=== PATIENT | male | born 1935 | race Caucasian/White ===

== ENCOUNTER 2018-01-14 18:23 | Emergency (ER) | payer MEDICARE, OTHER ==
[~2018-01-14] VITALS: Ht 182.9 cm; Wt 86.7 kg
[~2018-01-14 18:23] MED LIST: ALPR-624 PO; COR3.125T PO; FLO0.4C PO; HYDR-3965 PO; LISI2.5T49 PO; NAPR220C15 PO; ZOC40T PO; [UNRECOGNIZED DRUG - CODE] PO
[2018-01-14 18:48] LABS: CLARITY,URINE CLOUDY (Clear); COLOR,URINE YELLOW (Yellow); GLUCOSE, URINE NEGATIVE (Neg); KETONES,URINE NEGATIVE (Neg); LEUKOCYTE ESTERASE ,URINE LARGE (Neg); NITRITES, URINE POSITIVE (Neg); OCCULT BLOOD,URINE SMALL (Neg); PROTEIN,URINE TRACE mg/dl (Neg); UROBILINOGEN,URINE 0.2 E.U/dL (0.2-1.0)
[2018-01-14 18:54] LABS: UA COLLECTION TYPE CLN CATCH MIDSTREAM
[2018-01-14 18:55] LABS: SQUAMOUS EPITHELIAL CELL,UR NONE SEEN /LPF (FEW)
[2018-01-14 18:56] LABS: BACTERIA,URINE 2+ /HPF (Neg); RBC,URINE 0-2 /HPF (0-2); WBC,URINE TNTC /HPF (0-4)
[2018-01-14] MEDS ORDERED: morphine 4 MG/ML inj SYRINge IV ONE (19:15)
[2018-01-14] MEDS ORDERED: normal saline 1000ML IV soln IVB ONE (19:15)
[2018-01-14] MEDS ORDERED: ondansetron/PF 4mg/2ml inj IV ONE (19:15)
[2018-01-14 19:17] LABS: BASOPHILS % (AUTO) 0.4 % (0-1); EOSINOPHILS # (AUTO) 0.1 X10'3 (0-0.9); EOSINOPHILS % (AUTO) 2.1 % (0-6); HEMOGLOBIN 13.8 g/dl (14.0-17.9); LYMPHOCYTES # (AUTO) 1.6 X10'3 (1.1-4.8); LYMPHOCYTES % (AUTO) 22.9 % (21-51); MEAN CORPUSCULAR HEMOGLOBIN 32.6 PG (27.0-31.0); MEAN CORPUSCULAR HGB CONC 35.2 % (33.0-36.5); MEAN CORPUSCULAR VOLUME 92.6 FL (78-98); MEAN PLATELET VOLUME 9.7 FL (7.4-10.4); MONOCYTES # (AUTO) 0.5 X10'3 (0-0.9); MONOCYTES % (AUTO) 6.6 % (2-12); NEUTROPHILS # (AUTO) 4.9 X10'3 (1.8-7.7); PLATELET COUNT 146 X10'3 (140-440); RED BLOOD COUNT 4.22 X10'6 (4.70-6.10); RED CELL DISTRIBUTION WIDTH 13.5 % (11.5-14.5); WHITE BLOOD COUNT 7.2 X10'3 (4.5-11.0)
[2018-01-14 19:26] LABS: PROTHROMBIN TIME 10.4 SECONDS (9.0-12.0)
[2018-01-14] MEDS ORDERED: morphine 4 MG/ML inj SYRINge IV STA (19:27)
[2018-01-14 19:35] VITALS: BP 10/45
[2018-01-14 19:36] LABS: ALANINE AMINOTRANSFERASE 476 U/L (12-78); ALBUMIN/GLOBULIN RATIO 1.3 (1.1-1.5); ALKALINE PHOSPHATASE 244 IU/L (46-116); ANION GAP 6 (8-16); ASPARTATE AMINO TRANSFERASE 433 U/L (10-37); BILIRUBIN,TOTAL 1.3 MG/DL (0.1-1.0); BLOOD UREA NITROGEN 26 MG/DL (7-18); BUN/CREATININE RATIO 14.9 (5.4-32.0); CALCIUM 9.2 MG/DL (8.5-10.1); CHLORIDE 105 MMOL/L (99-107); CREATININE 1.75 MG/DL (0.60-1.10); GLUCOSE 111 MG/DL (70-104); LIPASE 419 U/L (73-393); POTASSIUM 4.8 MMOL/L (3.5-5.1); SODIUM 138 MMOL/L (135-145); TOTAL CARBON DIOXIDE 27.2 MMOL/L (24-32); TOTAL PROTEIN 7.2 G/DL (6.4-8.2); eGFR 38 ML/MIN
[2018-01-14] MEDS ORDERED: CEPH-572 PO (20:49)
[2018-01-14] MEDS ORDERED: PER10325T PO (20:49)
== END 2018-01-14 21:09 | disposition home or self-care (01) ==
LOC: ER 18:23
DX: K80.20 Calculus of gallbladder without cholecystitis without obstruction (principal); N39.0 Urinary tract infection, site not specified; R74.8 Abnormal levels of other serum enzymes; I25.10 Atherosclerotic heart disease of native coronary artery without angina pectoris; I10 Essential (primary) hypertension; I25.2 Old myocardial infarction; J44.9 Chronic obstructive pulmonary disease, unspecified; Z98.61 Coronary angioplasty status; Z98.890 Other specified postprocedural states; Z95.0 Presence of cardiac pacemaker; Z88.2 Allergy status to sulfonamides; Z79.82 Long term (current) use of aspirin; Z79.899 Other long term (current) drug therapy
CPT/HCPCS: 36415; 76700; 80053; 81001; 83690; 85025; 85610; 87088; 96361; 96374; 96375; 99285; J2270; J2405; J7030

== ENCOUNTER 2018-01-16 08:10 | Outpatient (CLI) | payer MEDICARE, OTHER ==
[~2018-01-16 08:10] MED LIST changes: +CEPH-572 PO; +PER10325T PO
[2018-01-16 09:19] LABS: ALBUMIN 3.7 G/DL (3.4-5.0)
[2018-01-16 09:46] LABS: ALANINE AMINOTRANSFERASE 369 U/L (12-78); ALBUMIN/GLOBULIN RATIO 1.2 (1.1-1.5); ALKALINE PHOSPHATASE 209 IU/L (46-116); ASPARTATE AMINO TRANSFERASE 132 U/L (10-37); BILIRUBIN,DIRECT 0.3 MG/DL (0-0.3); BILIRUBIN,TOTAL 0.9 MG/DL (0.1-1.0); LIPASE 136 U/L (73-393); TOTAL PROTEIN 6.9 G/DL (6.4-8.2)
== END 2018-01-16 23:59 | disposition home or self-care (01) ==
LOC: LAB 08:10
PROVIDERS: ATTEND Family Medicine
DX: R10.9 Unspecified abdominal pain (principal); Z79.82 Long term (current) use of aspirin; Z87.891 Personal history of nicotine dependence
CPT/HCPCS: 36415; 80076; 83690

== ENCOUNTER 2018-01-29 08:23 | Day surgery (SDC) | payer MEDICARE, OTHER ==
[2018-01-28 15:19] LABS: BASOPHILS % (AUTO) 0.4 % (0-1); EOSINOPHILS # (AUTO) 0.1 X10'3 (0-0.9); LYMPHOCYTES # (AUTO) 1.6 X10'3 (1.1-4.8); LYMPHOCYTES % (AUTO) 24.3 % (21-51); MEAN CORPUSCULAR HEMOGLOBIN 32.5 PG (27.0-31.0); MEAN CORPUSCULAR HGB CONC 34.7 % (33.0-36.5); MEAN CORPUSCULAR VOLUME 93.7 FL (78-98); MEAN PLATELET VOLUME 9.7 FL (7.4-10.4); MONOCYTES # (AUTO) 0.5 X10'3 (0-0.9); MONOCYTES % (AUTO) 7.9 % (2-12); NEUTROPHILS # (AUTO) 4.4 X10'3 (1.8-7.7); NEUTROPHILS % (AUTO) 65.4 % (42-75); PRE OP HEMOGLOBIN 12.8 g/dL (14.0-17.9); PRE OP PLATELET COUNT 155 X10'3 (140-440); RED BLOOD COUNT 3.95 X10'6 (4.70-6.10); RED CELL DISTRIBUTION WIDTH 13.1 % (11.5-14.5)
[2018-01-28 15:37] LABS: ALBUMIN 3.6 G/DL (3.4-5.0); ALKALINE PHOSPHATASE 152 IU/L (46-116); BLOOD UREA NITROGEN 21 MG/DL (7-18); BUN/CREATININE RATIO 13.7 (5.4-32.0); CALCIUM 9.1 MG/DL (8.5-10.1); CHLORIDE 105 MMOL/L (99-107); CREATININE 1.53 MG/DL (0.60-1.10); PRE OP ALT 68 U/L (30-65); PRE OP ANION GAP 9 (8-16); PRE OP AST 27 U/L (10-37); PRE OP BILIRUB, TOTAL 0.3 MG/DL (0.0-1.0); PRE OP POTASSIUM 4.1 MMOL/L (3.4-5.1); PRE OP SODIUM 142 MMOL/L (135-145); TOTAL CARBON DIOXIDE 28.2 MMOL/L (24-32); TOTAL PROTEIN 7.1 G/DL (6.4-8.2); eGFR 44 ML/MIN
[2018-01-28 15:45] LABS: PRE OP GLUCOSE 122 MG/DL (70-104)
[2018-01-29] VITALS (7 sets, daily range): BP systolic 127–151; BP diastolic 54–103
[~2018-01-29] VITALS: Ht 401.3 cm; Wt 86.0 kg
[~2018-01-29 08:23] MED LIST changes: +BISO1TAB7 PO; -CEPH-572 PO; -COR3.125T PO; +DOCUMENT DATE & TIME OF BETA-BLOCKER PO ONE; +IPRA3AMP9 IH; -LISI2.5T49 PO; +LOSA25TA96 PO; -PER10325T PO; +albuterol 2.5 MG/3 ML nebule NEB ONE; +ceFOXitin 2 GM ADDvantage bag 100 ML IV ONE; +famotidine 20mg tablet PO ONE; +ringers solution, lacted 1,000 ML IV SCH
[2018-01-29] MEDS ORDERED: BISO10TA PO (09:45)
[2018-01-29] MEDS ORDERED: BUPIVAcaine/PF 2.5mg/ml (0.25%) 10ml vial ONE (11:48)
[2018-01-29] MEDS ORDERED: sevoflurane 250ml liquid IH ONE (12:28)
[2018-01-29] MEDS ORDERED: fentaNYL/PF 50MCG/1 ML 2ML syringe ONE ×2 (12:33→13:22)
[2018-01-29] MEDS ORDERED: propofol inj 20 ML IV ONE (12:45)
[2018-01-29] MEDS ORDERED: rocuronium 10mg/ml inj IV ONE (12:45)
[2018-01-29] MEDS ORDERED: LIDOcaine 2% (20mg/ml) 5ml vial ONE (12:45)
[2018-01-29] MEDS ORDERED: dexamethasone sod phosphate 4mg/ml inj. ONE (12:46)
[2018-01-29] MEDS ORDERED: neostigmine methylsulfate 1 MG/ML 10ml vial ONE (13:22)
[2018-01-29] MEDS ORDERED: glycopyrrolate 0.2mg/ml inj ONE (13:22)
[2018-01-29] MEDS ORDERED: ondansetron/PF 4mg/2ml inj ONE (13:22)
[2018-01-29] MEDS ORDERED: ringers solution, lacted 1,000 ML IV SCH (13:36)
[2018-01-29] MEDS ORDERED: ondansetron/PF 4mg/2ml inj IV PRN (13:40)
[2018-01-29] MEDS ORDERED: morphine 4 MG/ML inj SYRINge IV PRN (13:40)
[2018-01-29] MEDS ORDERED: HYDROmorphone 1 mg/ml syringe IV PRN ×2 (13:40)
[2018-01-29] MEDS ORDERED: HYDROmorphone inj. 0.5 MG/0.5 ML DISP.SYRIN IV PRN ×2 (13:45)
== END 2018-01-29 14:18 | disposition home or self-care (01) ==
LOC: PAS 08:23
PROVIDERS: ATTEND Surgery
DX: K80.12 Calculus of gallbladder with acute and chronic cholecystitis without obstruction (principal); L91.8 Other hypertrophic disorders of the skin; R20.8 Other disturbances of skin sensation; K85.10 Biliary acute pancreatitis without necrosis or infection; N40.0 Benign prostatic hyperplasia without lower urinary tract symptoms; I25.2 Old myocardial infarction; M19.90 Unspecified osteoarthritis, unspecified site; F41.8 Other specified anxiety disorders; I10 Essential (primary) hypertension; I42.8 Other cardiomyopathies; E78.5 Hyperlipidemia, unspecified; J44.9 Chronic obstructive pulmonary disease, unspecified; I25.10 Atherosclerotic heart disease of native coronary artery without angina pectoris; Z87.891 Personal history of nicotine dependence; Z90.49 Acquired absence of other specified parts of digestive tract; Z79.82 Long term (current) use of aspirin; Z88.2 Allergy status to sulfonamides; Z79.891 Long term (current) use of opiate analgesic; Z72.89 Other problems related to lifestyle; Z95.810 Presence of automatic (implantable) cardiac defibrillator; Z95.5 Presence of coronary angioplasty implant and graft; Z86.74 Personal history of sudden cardiac arrest; Z79.899 Other long term (current) drug therapy; Z98.890 Other specified postprocedural states; Z82.3 Family history of stroke
CPT/HCPCS: 11200; 36415; 47562; 71046; 80053; 85025; 93005; J0694; J1100; J2001; J2405; J2704; J2710; J3010; J3490; J7120; 88304; 88305; A7000

== ENCOUNTER 2018-01-29 18:23 | Emergency (ER) | payer MEDICARE, OTHER ==
[~2018-01-29] VITALS: Ht 182.9 cm; Wt 87.0 kg
[~2018-01-29 18:23] MED LIST changes: +BISO10TA PO; -DOCUMENT DATE & TIME OF BETA-BLOCKER PO ONE; -albuterol 2.5 MG/3 ML nebule NEB ONE; -ceFOXitin 2 GM ADDvantage bag 100 ML IV ONE; -famotidine 20mg tablet PO ONE; -ringers solution, lacted 1,000 ML IV SCH
[2018-01-29 20:22] VITALS: BP 154/98
== END 2018-01-29 21:33 | disposition home or self-care (01) ==
LOC: ER 18:24
DX: R33.9 Retention of urine, unspecified (principal); I25.10 Atherosclerotic heart disease of native coronary artery without angina pectoris; I10 Essential (primary) hypertension; I25.2 Old myocardial infarction; J44.1 Chronic obstructive pulmonary disease with (acute) exacerbation; Z98.890 Other specified postprocedural states; Z98.61 Coronary angioplasty status; Z95.0 Presence of cardiac pacemaker; Z88.2 Allergy status to sulfonamides; Z79.82 Long term (current) use of aspirin; Z79.899 Other long term (current) drug therapy
CPT/HCPCS: 51702; 99284; A4315

== ENCOUNTER 2019-02-17 14:53 | Observation (INO) | payer MEDICARE ==
[~2019-02-17] VITALS: Ht 182.9 cm; Wt 86.2 kg
[~2019-02-17 14:53] MED LIST changes: -BISO1TAB7 PO
[2019-02-17] MEDS ORDERED: aspirin 81mg tab.chew PO ONE (15:00)
--- NOTE | 2019-02-17 15:15 | NUR ---
CHEST PAIN AND PRESSURE STARTING AT 1350 TODAY, RATED 5/10. TOOK ASA AT HOME AND PAIN WAS GONE WHEN EMS ARRIVED AT THE SCENE. PAIN HAD BEEN GOING ON FOR APPROX 20-30 MINUTES PRIOR TO CALLING EMS. PAIN AT PRESENT IS 0/10. HX CT AND ARRHYTHMIAS WITH DEFIB/PACEMAKER. HX STENT.
[2019-02-17 15:22] LABS: BASOPHILS % (AUTO) 0.8 % (0-1); EOSINOPHILS # (AUTO) 0.2 X10'3 (0-0.9); EOSINOPHILS % (AUTO) 4.7 % (0-6); HEMATOCRIT 38.4 % (42.0-52.0); HEMOGLOBIN 13.3 g/dl (14.0-17.9); LYMPHOCYTES # (AUTO) 1.5 X10'3 (1.1-4.8); LYMPHOCYTES % (AUTO) 28.9 % (21-51); MEAN CORPUSCULAR HEMOGLOBIN 32.3 PG (27.0-31.0); MEAN CORPUSCULAR HGB CONC 34.8 g/dL (33.0-36.5); MEAN CORPUSCULAR VOLUME 92.8 FL (78-98); MEAN PLATELET VOLUME 9.5 FL (7.4-10.4); MONOCYTES # (AUTO) 0.4 X10'3 (0-0.9); MONOCYTES % (AUTO) 8.4 % (2-12); NEUTROPHILS # (AUTO) 2.9 X10'3 (1.8-7.7); NEUTROPHILS % (AUTO) 57.2 % (42-75); PLATELET COUNT 139 X10'3 (140-440); RED BLOOD COUNT 4.14 X10'6 (4.70-6.10); RED CELL DISTRIBUTION WIDTH 13.7 % (11.5-14.5); WHITE BLOOD COUNT 5.1 X10'3 (4.5-11.0)
[2019-02-17 15:36] LABS: ALANINE AMINOTRANSFERASE 48 U/L (12-78); ALBUMIN 3.5 G/DL (3.4-5.0); ALBUMIN/GLOBULIN RATIO 1.2 (1.1-1.5); ALKALINE PHOSPHATASE 92 IU/L (46-116); ANION GAP 8 (8-16); ASPARTATE AMINO TRANSFERASE 50 U/L (10-37); BILIRUBIN,TOTAL 0.5 MG/DL (0.1-1.0); BLOOD UREA NITROGEN 22 MG/DL (7-18); BUN/CREATININE RATIO 16.4 (5.4-32.0); CALCIUM 8.7 MG/DL (8.5-10.1); CHLORIDE 110 MMOL/L (99-107); CREATININE 1.34 MG/DL (0.60-1.10); GLUCOSE 103 MG/DL (70-104); POTASSIUM 4.4 MMOL/L (3.5-5.1); SODIUM 143 MMOL/L (135-145); TOTAL CARBON DIOXIDE 25.2 MMOL/L (24-32); TOTAL PROTEIN 6.5 G/DL (6.4-8.2); eGFR 51 ML/MIN
--- NOTE | 2019-02-17 15:45 | NUR ---
pt denies any cp vitals stable ,pt family at bedside.
[2019-02-17 16:25] LABS: LIPASE 153 U/L (73-393)
[2019-02-17] MEDS ORDERED: mag hydrox/Alum hydrox/simeth 30ml oral suspension PO PRN (16:25)
[2019-02-17] MEDS ORDERED: potassium Cl 20 mEq SR tablet PO PRN ×2 (16:25)
[2019-02-17] MEDS ORDERED: morphine 2 MG/ML inj. syringe IV PRN ×2 (16:25)
[2019-02-17] MEDS ORDERED: magnesium hydroxide 30ml (MOM) UD suspension PO PRN (16:25)
[2019-02-17] MEDS ORDERED: nitroGLYCERIN 0.4mg SUBLingual tab SL PRN ×2 (16:25→19:10)
[2019-02-17] MEDS ORDERED: ondansetron/PF 4mg/2ml inj IV PRN (16:25)
[2019-02-17] MEDS ORDERED: magnesium 4gm in 100ml NS 100 ML IV PRN (16:25)
[2019-02-17] MEDS ORDERED: acetaminophen 325mg tablet PO PRN ×2 (16:25)
[2019-02-17] MEDS ORDERED: magnesium 2GM in 50ml NS 50 ML IV PRN (16:25)
[2019-02-17] MEDS ORDERED: magnesium Cl slow-release 64mg tablet PO PRN (16:25)
[2019-02-17] MEDS ORDERED: potassium CL 10mEq/100ml bag 100 ML IV PRN ×2 (16:25)
[2019-02-17] MEDS ORDERED: APIX5TAB3 PO (17:32)
[2019-02-17] MEDS ORDERED: CYAN-51 PO (17:32)
[2019-02-17] MEDS ORDERED: MULT1TAB74 PO (17:32)
[2019-02-17] MEDS ORDERED: FERR325T32 PO (17:32)
[2019-02-17] MEDS ORDERED: ALPRAZolam 0.5mg tablet PO PRN (19:10)
[2019-02-17] MEDS ORDERED: ipratropium/albuterol 3ml nebule NEB PRN (19:10)
[2019-02-17] MEDS ORDERED: aminophylline 250mg/10ml inj. IV PRN (19:10)
[2019-02-17] MEDS ORDERED: HYDROcodone/acetaminophen 5mg/325mg tablet PO PRN (19:10)
[2019-02-17] MEDS ORDERED: normal saline 1000ml 1,000 ML IV ONE (19:10)
[2019-02-17] MEDS ORDERED: metoprolol tartrate 1mg/ml inj IV PRN (19:10)
--- NOTE | 2019-02-17 19:20 | NUR ---
I have received report from PERICO Salcido and had the opportunity to ask questions and assume patient care.
--- NOTE | 2019-02-17 19:30 | NUR ---
Patient arrived to room 313 via [facility]. Pt ambulated from [facility] to hospital bed. All known belongings with the pt.
[2019-02-17] MEDS ORDERED: enoxaparin 100mg/ml syringe SUBCUT SCH (20:00)
[2019-02-17 20:45] LABS: CLARITY,URINE CLEAR (Clear); COLOR,URINE YELLOW (Yellow); GLUCOSE, URINE NEGATIVE (Neg); KETONES,URINE NEGATIVE (Neg); LEUKOCYTE ESTERASE ,URINE TRACE (Neg); NITRITES, URINE NEGATIVE (Neg); OCCULT BLOOD,URINE LARGE (Neg); PROTEIN,URINE NEGATIVE (Neg); UROBILINOGEN,URINE 0.2 E.U/dL (0.2-1.0)
[2019-02-17 20:50] LABS: UA COLLECTION TYPE VOIDED
[2019-02-17 20:53] LABS: BACTERIA,URINE FEW /HPF (Neg); SQUAMOUS EPITHELIAL CELL,UR FEW /LPF (FEW); WBC,URINE 0-4 /HPF (0-4)
[2019-02-17] MEDS ORDERED: atorvastatin 10mg tablet PO SCH (21:00)
--- NOTE | 2019-02-17 21:00 | NUR ---
Patient refused Lipitor. Patient states he had a reaction to this medication many years ago but could not say what the reaction was. I advised him to communicate this with the DrDonita and I will pass on this information as well.
[2019-02-17] MEDS: ipratropium/albuterol 3ml nebule NEB SCH (21:53)
[2019-02-17 22:00] VITALS: BP 149/82
[2019-02-17] MEDS: enoxaparin 100mg/ml syringe SUBCUT SCH (22:07)
[2019-02-17] MEDS ORDERED: CefTRIAXone/D5W-Rocephin 1gm 50 ML IV ONE (23:10)
[2019-02-18] VITALS (13 sets, daily range): BP systolic 122–164; BP diastolic 55–82
[2019-02-18 03:43] LABS: BASOPHILS % (AUTO) 0.6 % (0-1); EOSINOPHILS # (AUTO) 0.2 X10'3 (0-0.9); EOSINOPHILS % (AUTO) 3.6 % (0-6); HEMATOCRIT 38.4 % (42.0-52.0); HEMOGLOBIN 13.5 g/dl (14.0-17.9); LYMPHOCYTES # (AUTO) 2.3 X10'3 (1.1-4.8); MEAN CORPUSCULAR HEMOGLOBIN 32.3 PG (27.0-31.0); MEAN CORPUSCULAR VOLUME 92.2 FL (78-98); MEAN PLATELET VOLUME 9.5 FL (7.4-10.4); MONOCYTES # (AUTO) 0.5 X10'3 (0-0.9); MONOCYTES % (AUTO) 7.6 % (2-12); NEUTROPHILS # (AUTO) 3.6 X10'3 (1.8-7.7); NEUTROPHILS % (AUTO) 53.2 % (42-75); PLATELET COUNT 141 X10'3 (140-440); RED BLOOD COUNT 4.17 X10'6 (4.70-6.10); RED CELL DISTRIBUTION WIDTH 13.7 % (11.5-14.5); WHITE BLOOD COUNT 6.7 X10'3 (4.5-11.0)
[2019-02-18 03:54] LABS: ALBUMIN 3.5 G/DL (3.4-5.0); ANION GAP 10 (8-16); BLOOD UREA NITROGEN 19 MG/DL (7-18); BUN/CREATININE RATIO 14.2 (5.4-32.0); CALCIUM 8.5 MG/DL (8.5-10.1); CHLORIDE 109 MMOL/L (99-107); CHOL/HDL RATIO 2.7 (0.00-4.99); CHOLESTEROL 158 MG/DL (0-200); CREATININE 1.34 MG/DL (0.60-1.10); GLUCOSE 100 MG/DL (70-104); HDL CHOLESTEROL 58 MG/DL (35-60); LDL CHOLESTEROL 81 MG/DL (50-100); POTASSIUM 3.9 MMOL/L (3.5-5.1); SODIUM 141 MMOL/L (135-145); TOTAL CARBON DIOXIDE 22.5 MMOL/L (24-32); TRIGLYCERIDES 165 MG/DL (20-135); eGFR 51 ML/MIN
--- NOTE | 2019-02-18 05:33 | NUR ---
Orienteer documentation: I have reviewed and agree with interventions, assessments performed and documented by PERICO Garcia. Orienteer Medication Administration: For this medication-pass time frame, medication were reviewed, dispensed, administered and documented per hospital policy by PERICO Garcia.
--- NOTE | 2019-02-18 06:37 | NUR ---
Problems reprioritized. Patient report given, questions answered & plan of care reviewed with PERICO Tejeda.
[2019-02-18] MEDS ORDERED: atenolol 50mg tablet PO SCH (08:00)
[2019-02-18] MEDS ORDERED: CefTRIAXone/D5W-Rocephin 1gm 50 ML IV SCH (08:00)
[2019-02-18] MEDS ORDERED: aspirin 81mg tablet.DR PO SCH (08:00)
[2019-02-18] MEDS ORDERED: enoxaparin 40mg/0.4ml syringe SQ SCH (08:00)
[2019-02-18] MEDS ORDERED: tamsulosin 0.4mg capsule PO SCH (08:00)
[2019-02-18] MEDS ORDERED: ferrous sulfate 325mg tablet PO SCH (08:00)
[2019-02-18] MEDS ORDERED: multivitamins, therapeutics tablet PO SCH (08:00)
[2019-02-18] MEDS ORDERED: K and/or MAG REPLACEMENT MC SCH (08:00)
[2019-02-18] MEDS ORDERED: cyanocobalamin 500mcg tablet PO SCH (08:00)
[2019-02-18] MEDS: enoxaparin 100mg/ml syringe SUBCUT SCH (08:21)
[2019-02-18] MEDS: ipratropium/albuterol 3ml nebule NEB SCH ×2 (08:33→15:02)
[2019-02-18] MEDS: regadenoson 0.4mg/5ml syringe IV PRN ×2 (12:52→13:04)
[2019-02-18] MEDS ORDERED: PANT40SU2 PO (15:05)
[2019-02-18] MEDS ORDERED: lactobacillus rhamnosus 10,000 MMU CELLS/CAPSULE PO SCH (20:00)
== END 2019-02-18 15:15 | disposition home or self-care (01) ==
LOC: ER 14:53 → MED 3N 19:24
PROVIDERS: ADMIT Hospitalist; ATTEND Hospitalist
DX: R07.89 Other chest pain (principal); E78.5 Hyperlipidemia, unspecified; I10 Essential (primary) hypertension; I25.10 Atherosclerotic heart disease of native coronary artery without angina pectoris; I25.2 Old myocardial infarction; J44.9 Chronic obstructive pulmonary disease, unspecified; K21.9 Gastro-esophageal reflux disease without esophagitis; M19.90 Unspecified osteoarthritis, unspecified site; N40.0 Benign prostatic hyperplasia without lower urinary tract symptoms; R31.29 Other microscopic hematuria; Z79.01 Long term (current) use of anticoagulants; Z87.891 Personal history of nicotine dependence; Z95.0 Presence of cardiac pacemaker; Z95.5 Presence of coronary angioplasty implant and graft; Z79.82 Long term (current) use of aspirin; Z79.899 Other long term (current) drug therapy
CPT/HCPCS: 36415; 71045; 78452; 80048; 80053; 80061; 81001; 83690; 83735; 83880; 84484; 85025; 87081; 87088; 93005; 93017; 93306; 94640; 94760; 96365; 96366; 96372; 99284; A9500; G0378; J0280; J0696; J2785; J1650

== ENCOUNTER 2019-05-07 21:57 | Inpatient (IN) | payer MEDICARE ==
[~2019-05-07] VITALS: Ht 177.8 cm; Wt 73.7 kg
[~2019-05-07 21:57] MED LIST changes: +APIX5TAB3 PO; +CYAN-51 PO; +FERR325T32 PO; +MULT1TAB74 PO; +PANT40SU2 PO; -[UNRECOGNIZED DRUG - CODE] PO
[2019-05-07 22:36] LABS: BASOPHILS % (AUTO) 0.4 % (0-1); EOSINOPHILS # (AUTO) 0.1 X10'3 (0-0.9); EOSINOPHILS % (AUTO) 0.9 % (0-6); HEMATOCRIT 37.5 % (42.0-52.0); HEMOGLOBIN 13.2 g/dl (14.0-17.9); LYMPHOCYTES # (AUTO) 1.2 X10'3 (1.1-4.8); LYMPHOCYTES % (AUTO) 16.9 % (21-51); MEAN CORPUSCULAR HEMOGLOBIN 33.3 PG (27.0-31.0); MEAN CORPUSCULAR HGB CONC 35.2 g/dL (33.0-36.5); MEAN CORPUSCULAR VOLUME 94.5 FL (78-98); MEAN PLATELET VOLUME 9.9 FL (7.4-10.4); MONOCYTES # (AUTO) 0.4 X10'3 (0-0.9); MONOCYTES % (AUTO) 5.1 % (2-12); NEUTROPHILS # (AUTO) 5.5 X10'3 (1.8-7.7); NEUTROPHILS % (AUTO) 76.7 % (42-75); PLATELET COUNT 141 X10'3 (140-440); RED BLOOD COUNT 3.97 X10'6 (4.70-6.10); RED CELL DISTRIBUTION WIDTH 13.9 % (11.5-14.5); WHITE BLOOD COUNT 7.1 X10'3 (4.5-11.0)
[2019-05-07 22:47] LABS: ALANINE AMINOTRANSFERASE 441 U/L (12-78); ALBUMIN 3.9 G/DL (3.4-5.0); ALBUMIN/GLOBULIN RATIO 1.2 (1.1-1.5); ALKALINE PHOSPHATASE 192 IU/L (46-116); ANION GAP 9 (8-16); ASPARTATE AMINO TRANSFERASE 501 U/L (10-37); BILIRUBIN,TOTAL 1.9 MG/DL (0.1-1.0); BLOOD UREA NITROGEN 21 MG/DL (7-18); BUN/CREATININE RATIO 14.9 (5.4-32.0); CALCIUM 9.6 MG/DL (8.5-10.1); CHLORIDE 105 MMOL/L (99-107); CREATININE 1.41 MG/DL (0.60-1.10); GLUCOSE 132 MG/DL (70-104); SODIUM 140 MMOL/L (135-145); TOTAL PROTEIN 7.2 G/DL (6.4-8.2); eGFR 48 ML/MIN
[2019-05-07 22:59] LABS: LIPASE 26962 U/L (73-393)
--- NOTE | 2019-05-07 23:01 | NUR ---
Pt refused IV access and IV zofran at this time. Pt reports "I would rather hydrate on my own and do not want an IV." Pt also reports he has a history of elevated temperature every time he receives an IV access.
[2019-05-07 23:20] LABS: TROPONIN I < 0.04 NG/ML (0.0-0.05)
--- NOTE | 2019-05-07 23:30 | NUR ---
Pt ambulatory with steady gait to the restroom to attempt to void and provide urine specimen.
[2019-05-07 23:48] LABS: CLARITY,URINE CLEAR (Clear); COLOR,URINE YELLOW (Yellow); GLUCOSE, URINE NEGATIVE (Neg); KETONES,URINE TRACE mg/dl (Neg); LEUKOCYTE ESTERASE ,URINE TRACE (Neg); NITRITES, URINE NEGATIVE (Neg); OCCULT BLOOD,URINE LARGE (Neg); PROTEIN,URINE NEGATIVE (Neg); UROBILINOGEN,URINE 0.2 E.U/dL (0.2-1.0)
[2019-05-07] MEDS ORDERED: morphine 4 MG/ML inj SYRINge IV PRN (23:50)
[2019-05-07] MEDS ORDERED: ondansetron/PF 4mg/2ml inj IV ONE (23:50)
[2019-05-07 23:52] LABS: UA COLLECTION TYPE CLN CATCH MIDSTREAM
[2019-05-07 23:54] LABS: BACTERIA,URINE NONE SEEN /HPF (Neg); MUCUS STRANDS NONE SEEN /LPF (Neg); RBC,URINE 50-100 /HPF (0-2); RENAL CELLS, URINE FEW /HPF; SQUAMOUS EPITHELIAL CELL,UR FEW /LPF (FEW); TRANSITIONAL EPI CELLS,URINE FEW /HPF
[2019-05-07] MEDS ORDERED: famotidine/PF 10 mg/ml inj IV ONE (23:55)
[2019-05-07] MEDS ORDERED: pantoprazole 40 MG vial IV ONE (23:55)
[2019-05-08] VITALS (14 sets, daily range): BP systolic 101–145; BP diastolic 52–84
--- NOTE | 2019-05-08 00:14 | NUR ---
pt with piv in place, returned from ct, just given morphine 4 mg, zofran 4 mg, pepcid and protonix all iv. current vss. pt just vomiting small a t of clear emesis with mucus.
--- NOTE | 2019-05-08 04:08 | NUR ---
per dr. landon, pt does not need the troponin series. md at bedside for admission now. remains at bedside.
[2019-05-08] MEDS ORDERED: ipratropium/albuterol 3ml nebule NEB PRN (04:20)
[2019-05-08] MEDS ORDERED: magnesium 4gm in 100ml NS 100 ML IV PRN (04:20)
[2019-05-08] MEDS ORDERED: ASPI-257 (04:20)
[2019-05-08] MEDS ORDERED: potassium CL 10mEq/100ml bag 100 ML IV PRN ×2 (04:20)
[2019-05-08] MEDS ORDERED: morphine 2 MG/ML inj. syringe IV PRN ×2 (04:20)
[2019-05-08] MEDS ORDERED: ondansetron/PF 4mg/2ml inj IV PRN (04:20)
[2019-05-08] MEDS ORDERED: FERR134T2 PO (04:20)
[2019-05-08] MEDS ORDERED: acetaminophen 325mg tablet PO PRN (04:20)
[2019-05-08] MEDS ORDERED: mag hydrox/Alum hydrox/simeth 30ml oral suspension PO PRN (04:20)
[2019-05-08] MEDS ORDERED: HYDR-3972 PO (04:20)
[2019-05-08] MEDS ORDERED: magnesium Cl slow-release 64mg tablet PO PRN (04:20)
[2019-05-08] MEDS ORDERED: magnesium 2GM in 50ml NS 50 ML IV PRN (04:20)
[2019-05-08] MEDS ORDERED: potassium Cl 20 mEq SR tablet PO PRN ×2 (04:20)
[2019-05-08] MEDS ORDERED: ALPRAZolam 0.5mg tablet PO PRN (04:30)
[2019-05-08] MEDS: normal saline 1000ml 1,000 ML IV SCH ×2 (04:53→14:18)
--- NOTE | 2019-05-08 05:11 | NUR ---
CALL PLACED TO [facility] ANSWERING SERVICE AND MESSAGE LEFT THAT PATIENT WILL BE UNABLE TO MAKE HIS 08:30 APPOINTMENT
--- NOTE | 2019-05-08 06:20 | NUR ---
Patient in room ORTHO 4013. I have received report from Shahram RIVER and had the opportunity to ask questions and assume patient care.
[2019-05-08 06:24] LABS: BASOPHILS % (AUTO) 0.5 % (0-1); EOSINOPHILS % (AUTO) 0.9 % (0-6); HEMATOCRIT 37.5 % (42.0-52.0); HEMOGLOBIN 13.2 g/dl (14.0-17.9); LYMPHOCYTES # (AUTO) 1.2 X10'3 (1.1-4.8); LYMPHOCYTES % (AUTO) 23.5 % (21-51); MEAN CORPUSCULAR HGB CONC 35.2 g/dL (33.0-36.5); MEAN CORPUSCULAR VOLUME 96.7 FL (78-98); MEAN PLATELET VOLUME 10.4 FL (7.4-10.4); MONOCYTES # (AUTO) 0.3 X10'3 (0-0.9); MONOCYTES % (AUTO) 6.9 % (2-12); NEUTROPHILS # (AUTO) 3.5 X10'3 (1.8-7.7); NEUTROPHILS % (AUTO) 68.2 % (42-75); PLATELET COUNT 127 X10'3 (140-440); RED BLOOD COUNT 3.88 X10'6 (4.70-6.10); WHITE BLOOD COUNT 5.1 X10'3 (4.5-11.0)
[2019-05-08 06:25] LABS: ALANINE AMINOTRANSFERASE 598 U/L (12-78); ALBUMIN/GLOBULIN RATIO 1.3 (1.1-1.5); ALKALINE PHOSPHATASE 216 IU/L (46-116); ANION GAP 9 (8-16); ASPARTATE AMINO TRANSFERASE 594 U/L (10-37); BILIRUBIN,TOTAL 2.6 MG/DL (0.1-1.0); BLOOD UREA NITROGEN 22 MG/DL (7-18); BUN/CREATININE RATIO 16.1 (5.4-32.0); CALCIUM 9.3 MG/DL (8.5-10.1); CHLORIDE 105 MMOL/L (99-107); CREATININE 1.37 MG/DL (0.60-1.10); GLUCOSE 95 MG/DL (70-104); POTASSIUM 4.1 MMOL/L (3.5-5.1); SODIUM 141 MMOL/L (135-145); TOTAL CARBON DIOXIDE 27.5 MMOL/L (24-32); TOTAL PROTEIN 7.1 G/DL (6.4-8.2); eGFR 50 ML/MIN
[2019-05-08 06:59] LABS: LIPASE 11022 U/L (73-393)
[2019-05-08] MEDS: piperacillin/tazo 3.375gm/50ml 50 ML IV SCH ×2 (07:58→16:48)
[2019-05-08] MEDS: K and/or MAG REPLACEMENT MC SCH ×2 (08:00→20:00)
[2019-05-08] MEDS ORDERED: tamsulosin 0.4mg capsule PO SCH ×2 (08:00→21:00)
[2019-05-08] MEDS: ferrous sulfate 325mg tablet PO SCH (08:07)
[2019-05-08] MEDS: cyanocobalamin 500mcg tablet PO SCH (08:08)
[2019-05-08] MEDS: atenolol 50mg tablet PO SCH (08:09)
[2019-05-08] MEDS: multivitamins, therapeutics tablet PO SCH (08:09)
[2019-05-08] MEDS: losartan 25mg tablet PO SCH (08:09)
[2019-05-08] MEDS ORDERED: fentaNYL/PF 50MCG/1 ML 2ML syringe ONE (13:05)
[2019-05-08] MEDS ORDERED: diphenhydrAMINE 50 mg/ml inj ONE (13:05)
[2019-05-08] MEDS ORDERED: levoFLOXACIN-Levaquin 500mg/D5 100 ML IV ONE (13:05)
[2019-05-08] MEDS ORDERED: MIDAZolam 5mg/5ml vial ONE (13:05)
[2019-05-08] MEDS ORDERED: glucagon, human recombinant 1mg kit ONE (13:06)
[2019-05-08] MEDS ORDERED: LIDOcaine Viscous 15ml cup ONE (13:06)
[2019-05-08] MEDS ORDERED: iohexol 300 MG/1 ML 50ml polymer ONE (13:25)
--- NOTE | 2019-05-08 18:12 | NUR ---
Problems reprioritized. Patient report given, questions answered & plan of care reviewed with Teena RIVER.
--- NOTE | 2019-05-08 18:14 | NUR ---
Patient in room ORTHO 4013. I have received report from PERICO Higgins and had the opportunity to ask questions and assume patient care.
[2019-05-08] MEDS: lactobacillus rhamnosus 10,000 MMU CELLS/CAPSULE PO SCH (20:13)
[2019-05-09] MEDS: piperacillin/tazo 3.375gm/50ml 50 ML IV SCH ×2 (00:06→08:00)
[2019-05-09] MEDS: normal saline 1000ml 1,000 ML IV SCH ×2 (00:18→05:28)
[2019-05-09 06:00] VITALS: BP 118/63
--- NOTE | 2019-05-09 06:55 | NUR ---
Problems reprioritized. Patient report given, questions answered & plan of care reviewed with PERICO Bergman.
[2019-05-09 07:02] LABS: BASOPHILS % (AUTO) 0.4 % (0-1); EOSINOPHILS # (AUTO) 0.2 X10'3 (0-0.9); EOSINOPHILS % (AUTO) 3.2 % (0-6); HEMOGLOBIN 12.3 g/dl (14.0-17.9); LYMPHOCYTES # (AUTO) 1.3 X10'3 (1.1-4.8); LYMPHOCYTES % (AUTO) 17.8 % (21-51); MEAN CORPUSCULAR HEMOGLOBIN 33.6 PG (27.0-31.0); MEAN CORPUSCULAR HGB CONC 35.3 g/dL (33.0-36.5); MEAN CORPUSCULAR VOLUME 95.3 FL (78-98); MEAN PLATELET VOLUME 9.7 FL (7.4-10.4); MONOCYTES # (AUTO) 0.7 X10'3 (0-0.9); MONOCYTES % (AUTO) 9.1 % (2-12); NEUTROPHILS # (AUTO) 5.2 X10'3 (1.8-7.7); NEUTROPHILS % (AUTO) 69.5 % (42-75); PLATELET COUNT 119 X10'3 (140-440); RED BLOOD COUNT 3.67 X10'6 (4.70-6.10); RED CELL DISTRIBUTION WIDTH 14.1 % (11.5-14.5); WHITE BLOOD COUNT 7.5 X10'3 (4.5-11.0)
[2019-05-09 07:20] LABS: ALANINE AMINOTRANSFERASE 327 U/L (12-78); ALBUMIN 3.2 G/DL (3.4-5.0); ALBUMIN/GLOBULIN RATIO 1.1 (1.1-1.5); ALKALINE PHOSPHATASE 159 IU/L (46-116); ANION GAP 7 (8-16); ASPARTATE AMINO TRANSFERASE 141 U/L (10-37); BLOOD UREA NITROGEN 18 MG/DL (7-18); BUN/CREATININE RATIO 11.5 (5.4-32.0); CALCIUM 8.4 MG/DL (8.5-10.1); CHLORIDE 106 MMOL/L (99-107); CREATININE 1.57 MG/DL (0.60-1.10); GLUCOSE 91 MG/DL (70-104); LIPASE 1066 U/L (73-393); MAGNESIUM 1.6 MG/DL (1.5-2.4); POTASSIUM 3.9 MMOL/L (3.5-5.1); SODIUM 139 MMOL/L (135-145); TOTAL CARBON DIOXIDE 26.1 MMOL/L (24-32); TOTAL PROTEIN 6.1 G/DL (6.4-8.2); eGFR 43 ML/MIN
[2019-05-09] MEDS: K and/or MAG REPLACEMENT MC SCH (08:33)
[2019-05-09] MEDS: ferrous sulfate 325mg tablet PO SCH (08:48)
[2019-05-09] MEDS: cyanocobalamin 500mcg tablet PO SCH (08:48)
[2019-05-09] MEDS: losartan 25mg tablet PO SCH (08:49)
[2019-05-09] MEDS: lactobacillus rhamnosus 10,000 MMU CELLS/CAPSULE PO SCH (08:49)
[2019-05-09] MEDS: multivitamins, therapeutics tablet PO SCH (08:49)
[2019-05-09] MEDS: atenolol 50mg tablet PO SCH (08:49)
[2019-05-09 10:11] VITALS: BP 88/44
== END 2019-05-09 10:50 | disposition home or self-care (01) | DRG 444 ==
LOC: ER 21:58 → ED HOLD 05-08 04:39 → ORTHO 4S 05-08 05:14
PROVIDERS: ADMIT Family Medicine; ATTEND Internal Medicine
PROC: 0FC98ZZ Extirpation of Matter from Common Bile Duct, Via Natural or Artificial Opening Endoscopic (ICD-10-PCS; principal; 2019-05-08)
PROC: BF111ZZ Fluoroscopy of Biliary and Pancreatic Ducts using Low Osmolar Contrast (ICD-10-PCS; 2019-05-08)
DX: K80.41 Calculus of bile duct with cholecystitis, unspecified, with obstruction (principal); K85.10 Biliary acute pancreatitis without necrosis or infection; K57.90 Diverticulosis of intestine, part unspecified, without perforation or abscess without bleeding; E78.5 Hyperlipidemia, unspecified; I12.9 Hypertensive chronic kidney disease with stage 1 through stage 4 chronic kidney disease, or unspecified chronic kidney disease; I25.10 Atherosclerotic heart disease of native coronary artery without angina pectoris; J44.9 Chronic obstructive pulmonary disease, unspecified; N18.3 Chronic kidney disease, stage 3 (moderate); N40.0 Benign prostatic hyperplasia without lower urinary tract symptoms; Z79.01 Long term (current) use of anticoagulants; Z79.899 Other long term (current) drug therapy; Z82.3 Family history of stroke; Z88.2 Allergy status to sulfonamides; I25.2 Old myocardial infarction; Z88.1 Allergy status to other antibiotic agents; Z88.8 Allergy status to other drugs, medicaments and biological substances
CPT/HCPCS: 36415; 43262; 71045; 74176; 80053; 81001; 83605; 83690; 83735; 83880; 84484; 85025; 87040; 87081; 87088; 93005; 94760; 96374; 96375; 99152; 99153; 99285; A4620; C1769; C9113; G0378; J1200; J1610; J1956; J2250; J2270; J2405; J2543; J3010; J3490; J7030; J7040; Q9967

== ENCOUNTER 2019-06-16 10:15 | Day surgery (SDC) | payer MEDICARE ==
[~2019-06-16] VITALS: Ht 177.8 cm; Wt 86.4 kg
[2019-06-16] VITALS (15 sets, daily range): BP systolic 70–131; BP diastolic 36–92
[~2019-06-16 10:15] MED LIST changes: +ASPI-257; +FERR134T2 PO; -FERR325T32 PO; -HYDR-3965 PO; +HYDR-3972 PO; -NAPR220C15 PO; -PANT40SU2 PO
[2019-06-16] MEDS ORDERED: diphenhydrAMINE 50 mg/ml inj ONE (11:13)
[2019-06-16] MEDS ORDERED: MIDAZolam 5mg/5ml vial ONE (11:13)
[2019-06-16] MEDS ORDERED: fentaNYL/PF 50MCG/1 ML 2ML syringe ONE (11:13)
[2019-06-16] MEDS ORDERED: LIDOcaine Viscous 15ml cup ONE (11:13)
[2019-06-16] MEDS ORDERED: glucagon, human recombinant 1mg kit ONE (11:14)
[2019-06-16] MEDS ORDERED: iohexol 300 MG/1 ML 50ml polymer ONE (11:14)
== END 2019-06-16 13:15 | disposition home or self-care (01) ==
LOC: GI LAB 10:15
PROVIDERS: ATTEND Internal Medicine Gastroenterology
DX: Z46.59 Encounter for fitting and adjustment of other gastrointestinal appliance and device (principal); K83.8 Other specified diseases of biliary tract; Z79.899 Other long term (current) drug therapy
CPT/HCPCS: 43264; 43275; 74328; 99153; C1769; C1773; G0500; J1200; J1610; J2250; J3010; J7040; Q9967; 99152; A4620

== ENCOUNTER 2021-01-19 23:13 | Emergency (ER) | payer MEDICARE ==
[~2021-01-19] VITALS: Ht 182.9 cm; Wt 88.6 kg
[~2021-01-19 23:13] MED LIST changes: -BISO10TA PO; +BISO10TA16 PO; +MULT-620 PO; -MULT1TAB74 PO
[2021-01-19 23:22] VITALS: BP 148/115
--- NOTE | 2021-01-19 23:36 | NUR ---
bladder scanner 843ml
[2021-01-19] MEDS ORDERED: LIDOcaine 2% 10ml TOPICAL JELLY (Urojet) MM STA (23:37)
[2021-01-19] MEDS ORDERED: LIDOcaine 2% 10ml TOPICAL JELLY (Urojet) ONE (23:39)
[2021-01-20 00:21] LABS: CLARITY,URINE SLIGHTLY CLOUDY (Clear); COLOR,URINE YELLOW (Yellow); GLUCOSE, URINE NEGATIVE (Neg); KETONES,URINE NEGATIVE (Neg); LEUKOCYTE ESTERASE ,URINE MODERATE (Neg); NITRITES, URINE NEGATIVE (Neg); OCCULT BLOOD,URINE LARGE (Neg); PROTEIN,URINE 100 mg/dl (Neg); UROBILINOGEN,URINE 0.2 E.U/dL (0.2-1.0)
[2021-01-20 00:29] LABS: UA COLLECTION TYPE FOLEY CATH
[2021-01-20 00:31] LABS: BACTERIA,URINE 3+ /HPF (Neg); RBC,URINE 50-100 /HPF (0-2); SQUAMOUS EPITHELIAL CELL,UR NONE SEEN /LPF (FEW); WBC,URINE TNTC /HPF (0-4)
[2021-01-20] MEDS ORDERED: CefTRIAXone 2gm/D5W 50ml BAG 50 ML IV STA (01:05)
[2021-01-20] MEDS ORDERED: normal saline 1000ML IV soln IVB ONE (01:05)
[2021-01-20 02:36] LABS: BASOPHILS % (AUTO) 0.1 % (0-1); EOSINOPHILS # (AUTO) 0.1 X10'3 (0-0.9); EOSINOPHILS % (AUTO) 0.4 % (0-6); HEMATOCRIT 36.4 % (42.0-52.0); HEMOGLOBIN 12.2 g/dl (14.0-17.9); LYMPHOCYTES # (AUTO) 1.3 X10'3 (1.1-4.8); MEAN CORPUSCULAR HEMOGLOBIN 32.1 PG (27.0-31.0); MEAN CORPUSCULAR HGB CONC 33.6 g/dL (33.0-36.5); MEAN CORPUSCULAR VOLUME 95.6 FL (78-98); MEAN PLATELET VOLUME 9.9 FL (7.4-10.4); MONOCYTES # (AUTO) 1.1 X10'3 (0-0.9); MONOCYTES % (AUTO) 8.1 % (2-12); NEUTROPHILS # (AUTO) 10.9 X10'3 (1.8-7.7); NEUTROPHILS % (AUTO) 81.4 % (42-75); PLATELET COUNT 141 X10'3 (140-440); RED BLOOD COUNT 3.81 X10'6 (4.70-6.10); RED CELL DISTRIBUTION WIDTH 14.1 % (11.5-14.5); WHITE BLOOD COUNT 13.4 X10'3 (4.5-11.0)
[2021-01-20 02:56] LABS: ALANINE AMINOTRANSFERASE 18 U/L (12-78); ALBUMIN 3.3 G/DL (3.4-5.0); ALBUMIN/GLOBULIN RATIO 0.9 (1.1-1.5); ALKALINE PHOSPHATASE 59 IU/L (46-116); ANION GAP 14 (8-16); ASPARTATE AMINO TRANSFERASE 12 U/L (10-37); BILIRUBIN,TOTAL 0.7 MG/DL (0.1-1.0); BLOOD UREA NITROGEN 43 MG/DL (7-18); BUN/CREATININE RATIO 19.2 (5.4-32.0); CALCIUM 8.3 MG/DL (8.5-10.1); CHLORIDE 106 MMOL/L (99-107); CREATININE 2.24 MG/DL (0.60-1.10); GLUCOSE 119 MG/DL (70-104); POTASSIUM 3.9 MMOL/L (3.5-5.1); SODIUM 140 MMOL/L (135-145); TOTAL CARBON DIOXIDE 20.2 MMOL/L (24-32); eGFR 28 ML/MIN
[2021-01-20] MEDS ORDERED: DOXY-411 PO (03:20)
== END 2021-01-20 04:58 | disposition home or self-care (01) ==
LOC: ER 23:13
DX: N39.0 Urinary tract infection, site not specified (principal); N17.9 Acute kidney failure, unspecified; I25.10 Atherosclerotic heart disease of native coronary artery without angina pectoris; E78.00 Pure hypercholesterolemia, unspecified; I10 Essential (primary) hypertension; I25.2 Old myocardial infarction; J44.9 Chronic obstructive pulmonary disease, unspecified; Z90.49 Acquired absence of other specified parts of digestive tract; Z95.0 Presence of cardiac pacemaker; Z98.890 Other specified postprocedural states; Z88.2 Allergy status to sulfonamides; Z79.2 Long term (current) use of antibiotics; Z79.899 Other long term (current) drug therapy
CPT/HCPCS: 36415; 51702; 80053; 81001; 83605; 84145; 85025; 87040; 87077; 87088; 96365; 99284; J0696; J7030

== ENCOUNTER 2022-08-02 22:06 | Emergency (ER) | payer MEDICARE ==
[~2022-08-02] VITALS: Ht 177.8 cm; Wt 88.6 kg
[2022-08-02 22:15] VITALS: BP 110/50
== END 2022-08-03 01:37 | disposition left against medical advice (07) ==
LOC: ER 22:06
DX: T83.9XXA Unspecified complication of genitourinary prosthetic device, implant and graft, initial encounter (principal); R33.9 Retention of urine, unspecified; Z53.21 Procedure and treatment not carried out due to patient leaving prior to being seen by health care provider
CPT/HCPCS: 99281

== ENCOUNTER 2023-03-28 07:06 | Inpatient (IN) | payer MEDICARE ==
[2023-03-28] VITALS (9 sets, daily range): BP systolic 120–128; BP diastolic 69–70; PULSE 73–100; RESP 18–38; TEMP 97.8–98.1; O2SAT 92–95
[~2023-03-28] VITALS: Ht 177.8 cm; Wt 93.3 kg
[~2023-03-28 07:06] MED LIST changes: +CYAN-104 PO; -CYAN-51 PO; +LOSA-415 PO; -LOSA25TA96 PO
[2023-03-28] MEDS ORDERED: CefTRIAXone/D5W-Rocephin 1gm 50 ML IV ONE (07:45)
[2023-03-28] MEDS ORDERED: azithromycin/NS 500mg/250ml 250 ML IV SCH (08:00)
[2023-03-28 08:02] LABS: ABG BASE EXCESS -3.6 mmol/L (-2.0-2.0); ABG HCO3 19.3 mmol/L (22.0-26.0); ABG OXYGEN SATURATION 94.1 % (94-97); ABG PCO2 (T) 29.1 mmHg (35.0-48.0); ABG PH (T) 7.439 (7.340-7.440); ABG PO2 (T) 65.5 mmHg (75.0-100.0); ALLEN'S TEST POSITIVE; FCOHb 0.2 % (0.0-3.9); FHHb 5.9 % (0.0-5.0); FLOW 7 L/min; FMetHb 0.5 % (0.0-1.5); FO2Hb 93.4 % (94-97); MODE NASAL CANNULA; TOTAL HEMOGLOBIN 13.6 G/dl (14.0-17.9)
[2023-03-28 08:13] LABS: BASOPHILS % (AUTO) 0.1 % (0-1); EOSINOPHILS % (AUTO) 0 % (0-6); HEMATOCRIT 37.2 % (42.0-52.0); HEMOGLOBIN 12.7 g/dl (14.0-17.9); LYMPHOCYTES # (AUTO) 0.6 X10'3 (1.1-4.8); LYMPHOCYTES % (AUTO) 3.8 % (21-51); MEAN CORPUSCULAR HEMOGLOBIN 31.6 PG (27.0-31.0); MEAN CORPUSCULAR HGB CONC 34.1 g/dL (33.0-36.5); MEAN CORPUSCULAR VOLUME 92.6 FL (78-98); MEAN PLATELET VOLUME 8.8 FL (7.4-10.4); MONOCYTES # (AUTO) 0.7 X10'3 (0-0.9); MONOCYTES % (AUTO) 4.7 % (2-12); NEUTROPHILS # (AUTO) 13.8 X10'3 (1.8-7.7); NEUTROPHILS % (AUTO) 91.4 % (42-75); PLATELET COUNT 147 X10'3 (140-440); RED BLOOD COUNT 4.02 X10'6 (4.70-6.10); WHITE BLOOD COUNT 15.1 X10'3 (4.5-11.0)
[2023-03-28 08:28] LABS: ALANINE AMINOTRANSFERASE 31 U/L (12-78); ALBUMIN 3.4 G/DL (3.4-5.0); ALBUMIN/GLOBULIN RATIO 0.9 (1.1-1.5); ALKALINE PHOSPHATASE 62 IU/L (46-116); ANION GAP 10 (8-16); ASPARTATE AMINO TRANSFERASE 25 U/L (10-37); BILIRUBIN,TOTAL 0.8 MG/DL (0.1-1.0); BLOOD UREA NITROGEN 27 MG/DL (7-18); BUN/CREATININE RATIO 15.3 (10.0-20.0); CHLORIDE 102 MMOL/L (99-107); CREATININE 1.76 MG/DL (0.60-1.10); GLUCOSE 154 MG/DL (70-104); POTASSIUM 4.4 MMOL/L (3.5-5.1); SODIUM 136 MMOL/L (135-145); TOTAL CARBON DIOXIDE 23.7 MMOL/L (24-32); TOTAL PROTEIN 7.2 G/DL (6.4-8.2); eCRCL 31 ML/MIN; eGFR 37 ML/MIN
[2023-03-28 08:36] LABS: PRO BRAIN NATRIURETIC PEPTIDE 1849 PG/ML (0-450)
[2023-03-28] MEDS ORDERED: ipratropium/albuterol 3ml nebule NEB ONE (09:25)
[2023-03-28] MEDS ORDERED: ipratropium/albuterol 3ml nebule NEB PRN (09:35)
[2023-03-28] MEDS ORDERED: magnesium 4gm in 100ml NS 100 ML IV PRN (09:35)
[2023-03-28] MEDS ORDERED: acetaminophen 325mg tablet PO PRN (09:35)
[2023-03-28] MEDS ORDERED: albuterol 2.5 MG/3 ML nebule NEB PRN (09:35)
[2023-03-28] MEDS ORDERED: potassium Cl 40MEQ/1/2NS 520ml 520 ML IV PRN (09:35)
[2023-03-28] MEDS ORDERED: magnesium 2GM in 50ml NS 50 ML IV PRN (09:35)
[2023-03-28] MEDS ORDERED: PERFLUTREN PROTEIN-A MICROSPHR (Optison) 0.22 MG/ML 3ML VIAL IV ONE (09:35)
[2023-03-28] MEDS ORDERED: methylPREDNISolone sod succ 125mg/2ml vial IV ONE (09:35)
[2023-03-28] MEDS ORDERED: ondansetron/PF 4mg/2ml inj IV PRN (09:35)
[2023-03-28] MEDS ORDERED: potassium Cl 20 mEq SR tablet PO PRN ×2 (09:35)
[2023-03-28] MEDS ORDERED: azithromycin 250mg tablet PO ONE (09:35)
[2023-03-28] MEDS ORDERED: mag hydrox/Alum hydrox/simeth 30ml oral suspension PO PRN (09:35)
--- NOTE | 2023-03-28 09:35 | NUR ---
RESPIRATORY AT BEDSIDE FOR DOCB
[2023-03-28 11:13] LABS: BILIRUBIN,URINE NEGATIVE (Neg); CLARITY,URINE CLOUDY (Clear); COLOR,URINE YELLOW (Yellow); GLUCOSE, URINE NEGATIVE (Neg); KETONES,URINE NEGATIVE (Neg); LEUKOCYTE ESTERASE ,URINE LARGE (Neg); NITRITES, URINE POSITIVE (Neg); OCCULT BLOOD,URINE TRACE-INTACT (Neg); PROTEIN,URINE NEGATIVE (Neg); UROBILINOGEN,URINE 0.2 E.U/dL (0.2-1.0)
[2023-03-28 11:21] LABS: UA COLLECTION TYPE URINAL
[2023-03-28 11:22] LABS: BACTERIA,URINE 3+ /HPF (Neg); SQUAMOUS EPITHELIAL CELL,UR FEW /LPF (FEW); WBC CLUMPS,URINE MANY /HPF (NEGATIVE); WBC,URINE TNTC /HPF (0-4)
[2023-03-28 11:23] LABS: RBC,URINE 0-2 /HPF (0-2)
[2023-03-28] MEDS ORDERED: FINA5TAB11 PO (12:21)
[2023-03-28] MEDS ORDERED: FLO0.4C PO (12:21)
[2023-03-28] MEDS ORDERED: ROSU20TA73 PO (12:21)
[2023-03-28] MEDS ORDERED: WARF3TAB56 PO (12:21)
[2023-03-28] MEDS ORDERED: IPRA3AMP9 IH (12:22)
[2023-03-28] MEDS: methylPREDNISolone sod succ 125mg/2ml vial IV SCH ×2 (13:27→20:39)
[2023-03-28] MEDS: heparin, porcine 5000 units/ml vial SQ SCH (15:39)
--- NOTE | 2023-03-28 16:43 | NUR ---
Pt placed on hospital bed
--- NOTE | 2023-03-28 18:55 | NUR ---
attempted to call report to floor. nurse unavailable and awaiting return call.
--- NOTE | 2023-03-28 18:58 | NUR ---
Paged Dr. Nassar pt request sleep aid, admit and med rec complete, report to Juanita RAY.
[2023-03-28] MEDS ORDERED: ipratropium/albuterol 3ml nebule IH PRN (19:00)
[2023-03-28] MEDS ORDERED: tamsulosin 0.4mg capsule PO SCH (19:00)
[2023-03-28] MEDS ORDERED: HYDROcodone/acetaminophen 10/325mg tab PO PRN (19:00)
--- NOTE | 2023-03-28 19:11 | NUR ---
ATTEMPTED TO CALL REPORT FOR THE 2ND TIME. NURSE AND CHARGE NURSE UNAVAILIABLE AT THIS TIME. AWAITING RETURN CALL.
[2023-03-28] MEDS: K and/or MAG REPLACEMENT MC SCH (19:13)
[2023-03-28] MEDS: ALPRAZolam 0.5mg tablet PO SCH (19:15)
[2023-03-28] MEDS: docusate sod 100mg capsule PO SCH (19:15)
--- NOTE | 2023-03-28 19:25 | NUR ---
I called and received report from Elizabeth in the ER and will give report to Lidia when she is available.
--- NOTE | 2023-03-28 19:35 | NUR ---
Pt arrived to floor at this time, oxygen is applied and he is orientated to the room and call light.
--- NOTE | 2023-03-28 19:35 | NUR ---
Patient in room ORTHO 4015. I have received report from Elda RIVER and had the opportunity to ask questions and assume patient care. Addendum: 03/28/23 at 2243 by Lidia Durham RN Amended: Links added.
[2023-03-28 20:04] LABS: INR 1.7 INR; PROTHROMBIN TIME 17.7 SECONDS (9.0-12.0)
[2023-03-28] MEDS ORDERED: guaiFENesin/DM 10ml UD oral syrup PO PRN (20:55)
[2023-03-28] MEDS: normal saline 1000ml 1,000 ML IV SCH (21:06)
--- NOTE | 2023-03-28 22:59 | NUR ---
Dr. Irene made aware of lactic redraw of 3.6 down from 3.9
[2023-03-29] VITALS (12 sets, daily range): BP systolic 119–159; BP diastolic 60–83; PULSE 75–90; RESP 17–41; TEMP 97.7–98.1; O2SAT 63–96
[2023-03-29] MEDS: heparin, porcine 5000 units/ml vial SQ SCH (00:24)
[2023-03-29 07:20] LABS: BASOPHILS % (AUTO) 0.1 % (0-1); EOSINOPHILS % (AUTO) 0 % (0-6); HEMATOCRIT 36.1 % (42.0-52.0); HEMOGLOBIN 12.3 g/dl (14.0-17.9); LYMPHOCYTES # (AUTO) 0.9 X10'3 (1.1-4.8); LYMPHOCYTES % (AUTO) 5.5 % (21-51); MEAN CORPUSCULAR HEMOGLOBIN 31.7 PG (27.0-31.0); MEAN CORPUSCULAR VOLUME 93.2 FL (78-98); MEAN PLATELET VOLUME 9.3 FL (7.4-10.4); MONOCYTES # (AUTO) 0.6 X10'3 (0-0.9); MONOCYTES % (AUTO) 3.5 % (2-12); NEUTROPHILS # (AUTO) 15.2 X10'3 (1.8-7.7); NEUTROPHILS % (AUTO) 90.9 % (42-75); PLATELET COUNT 139 X10'3 (140-440); RED BLOOD COUNT 3.87 X10'6 (4.70-6.10); RED CELL DISTRIBUTION WIDTH 13.7 % (11.5-14.5); WHITE BLOOD COUNT 16.8 X10'3 (4.5-11.0)
[2023-03-29 07:27] LABS: INR 1.7 INR; PROTHROMBIN TIME 17.9 SECONDS (9.0-12.0)
[2023-03-29 07:43] LABS: ALANINE AMINOTRANSFERASE 26 U/L (12-78); ALBUMIN 3.3 G/DL (3.4-5.0); ALBUMIN/GLOBULIN RATIO 0.8 (1.1-1.5); ALKALINE PHOSPHATASE 48 IU/L (46-116); ANION GAP 10 (8-16); ASPARTATE AMINO TRANSFERASE 19 U/L (10-37); BILIRUBIN,TOTAL 0.7 MG/DL (0.1-1.0); BLOOD UREA NITROGEN 35 MG/DL (7-18); BUN/CREATININE RATIO 21.2 (10.0-20.0); CALCIUM 9.3 MG/DL (8.5-10.1); CHLORIDE 106 MMOL/L (99-107); CREATININE 1.65 MG/DL (0.60-1.10); GLUCOSE 139 MG/DL (70-104); MAGNESIUM 2.1 MG/DL (1.5-2.4); POTASSIUM 4.3 MMOL/L (3.5-5.1); SODIUM 139 MMOL/L (135-145); TOTAL CARBON DIOXIDE 23.2 MMOL/L (24-32); TOTAL PROTEIN 7.4 G/DL (6.4-8.2); eCRCL 33 ML/MIN; eGFR 40 ML/MIN
[2023-03-29] MEDS: azithromycin 250mg tablet PO SCH (07:48)
[2023-03-29] MEDS: atorvastatin 20mg tablet PO SCH (07:48)
[2023-03-29] MEDS: docusate sod 100mg capsule PO SCH ×2 (07:48→21:10)
[2023-03-29] MEDS: CefTRIAXone/D5W-Rocephin 1gm 50 ML IV SCH (07:48)
[2023-03-29] MEDS: losartan 25mg tablet PO SCH (07:49)
[2023-03-29] MEDS: atenolol 50mg tablet PO SCH (07:49)
[2023-03-29] MEDS: multivitamins, therapeutics tablet PO SCH (07:49)
[2023-03-29] MEDS: methylPREDNISolone sod succ 125mg/2ml vial IV SCH ×3 (07:50→21:04)
[2023-03-29] MEDS: normal saline 1000ml 1,000 ML IV SCH (07:56)
[2023-03-29] MEDS: K and/or MAG REPLACEMENT MC SCH ×2 (08:00→20:00)
[2023-03-29] MEDS: ALPRAZolam 0.5mg tablet PO SCH ×2 (08:00→21:06)
[2023-03-29] MEDS: cyanocobalamin 500mcg tablet PO SCH (11:15)
[2023-03-29] MEDS: finasteride 5mg tablet PO SCH (11:15)
[2023-03-29] MEDS: ipratropium/albuterol 3ml nebule NEB SCH ×3 (12:40→20:12)
--- NOTE | 2023-03-29 14:32 | NUR ---
Patient in room ORTHO 4015. I have received report from jacob RIVER and had the opportunity to ask questions and assume patient care.
--- NOTE | 2023-03-29 14:34 | NUR ---
REPORT GIVEN TO JOJO RIVER
--- NOTE | 2023-03-29 18:42 | NUR ---
Problems reprioritized. Patient report given to brandy nava RN, questions answered & plan of care reviewed with .
--- NOTE | 2023-03-29 18:45 | NUR ---
Patient in room ORTHO 4015. I have received report from JOJO RIVER and had the opportunity to ask questions and assume patient care.
[2023-03-29] MEDS ORDERED: Melatonin 3mg tablet PO SCH (21:00)
[2023-03-29] MEDS ORDERED: warfarin 3mg tablet PO SCH (21:00)
[2023-03-29] MEDS ORDERED: warfarin 3mg tablet PO ONE (21:00)
[2023-03-30] VITALS (7 sets, daily range): BP systolic 107–122; BP diastolic 43–59; PULSE 75–97; RESP 18–22; TEMP 97.6–97.8; O2SAT 94–96
[2023-03-30] MEDS: normal saline 1000ml 1,000 ML IV SCH ×2 (00:34→10:25)
[2023-03-30] MEDS: ipratropium/albuterol 3ml nebule NEB SCH ×2 (02:34→07:41)
--- NOTE | 2023-03-30 06:23 | NUR ---
Problems reprioritized. Patient report given, questions answered & plan of care reviewed with JOJO RIVER.
--- NOTE | 2023-03-30 06:36 | NUR ---
Patient in room ORTHO 4015. I have received report from CAITLIN TUCKER RN and had the opportunity to ask questions and assume patient care.
[2023-03-30] MEDS: methylPREDNISolone sod succ 125mg/2ml vial IV SCH (07:24)
[2023-03-30] MEDS: CefTRIAXone/D5W-Rocephin 1gm 50 ML IV SCH (07:24)
[2023-03-30] MEDS: multivitamins, therapeutics tablet PO SCH (07:25)
[2023-03-30] MEDS: docusate sod 100mg capsule PO SCH (07:25)
[2023-03-30] MEDS: atorvastatin 20mg tablet PO SCH (07:26)
[2023-03-30] MEDS: ALPRAZolam 0.5mg tablet PO SCH (07:26)
[2023-03-30] MEDS: atenolol 50mg tablet PO SCH (07:29)
[2023-03-30] MEDS: cyanocobalamin 500mcg tablet PO SCH (07:30)
[2023-03-30] MEDS: losartan 25mg tablet PO SCH (07:30)
[2023-03-30] MEDS: azithromycin 250mg tablet PO SCH (07:31)
[2023-03-30] MEDS: finasteride 5mg tablet PO SCH (07:31)
[2023-03-30] MEDS: K and/or MAG REPLACEMENT MC SCH (08:00)
--- NOTE | 2023-03-30 09:15 | NUR ---
TITRATED 02 TO 1L NC. PT. AT 96%. Addendum: 03/30/23 at 0917 by Severiano Lutz RN TURNED OFF 02. PT. AT 96% 02. WILL CONTINUE TO MONITOR.
[2023-03-30 09:47] LABS: BASOPHILS % (AUTO) 0 % (0-1); EOSINOPHILS % (AUTO) 0 % (0-6); HEMATOCRIT 33.2 % (42.0-52.0); HEMOGLOBIN 11.4 g/dl (14.0-17.9); LYMPHOCYTES # (AUTO) 0.8 X10'3 (1.1-4.8); LYMPHOCYTES % (AUTO) 7.7 % (21-51); MEAN CORPUSCULAR HGB CONC 34.3 g/dL (33.0-36.5); MEAN CORPUSCULAR VOLUME 93.1 FL (78-98); MEAN PLATELET VOLUME 9.5 FL (7.4-10.4); MONOCYTES # (AUTO) 0.3 X10'3 (0-0.9); MONOCYTES % (AUTO) 3.2 % (2-12); NEUTROPHILS # (AUTO) 8.9 X10'3 (1.8-7.7); NEUTROPHILS % (AUTO) 89.1 % (42-75); PLATELET COUNT 140 X10'3 (140-440); RED BLOOD COUNT 3.56 X10'6 (4.70-6.10); RED CELL DISTRIBUTION WIDTH 13.9 % (11.5-14.5)
[2023-03-30 10:00] LABS: INR 1.5 INR; PROTHROMBIN TIME 15.9 SECONDS (9.0-12.0)
[2023-03-30 10:03] LABS: ALANINE AMINOTRANSFERASE 31 U/L (12-78); ALBUMIN 2.9 G/DL (3.4-5.0); ALBUMIN/GLOBULIN RATIO 0.8 (1.1-1.5); ALKALINE PHOSPHATASE 43 IU/L (46-116); ANION GAP 10 (8-16); ASPARTATE AMINO TRANSFERASE 30 U/L (10-37); BILIRUBIN,TOTAL 0.5 MG/DL (0.1-1.0); BLOOD UREA NITROGEN 47 MG/DL (7-18); BUN/CREATININE RATIO 27.6 (10.0-20.0); CALCIUM 8.7 MG/DL (8.5-10.1); CHLORIDE 105 MMOL/L (99-107); GLUCOSE 205 MG/DL (70-104); MAGNESIUM 2.3 MG/DL (1.5-2.4); POTASSIUM 3.9 MMOL/L (3.5-5.1); SODIUM 138 MMOL/L (135-145); TOTAL CARBON DIOXIDE 22.7 MMOL/L (24-32); TOTAL PROTEIN 6.6 G/DL (6.4-8.2); eCRCL 32 ML/MIN; eGFR 38 ML/MIN
[2023-03-30] MEDS ORDERED: PRED20TA PO (10:44)
[2023-03-30] MEDS ORDERED: CEFU500T66 PO (10:44)
--- NOTE | 2023-03-30 11:44 | NUR ---
PT. ALERT, STABLE, AND ORIENTATED ON DISCHARGE. PT. IV CANULA WHOLE AND INTACT UPON REMOVAL. PT. EDUCATED ON NEW PRESCRIPTIONS, CONTINUED MEDS, FOLLOW UP WITH PRIMARY DOCTOR, WARFARIN INTERACTIONS, S/S OF RESPIRATORY DISTRESS, S/S OF UTI. PT. LEFT WITH ALL BELONGINGS. PT. SAFELY ESCORTED INTO PRIVATE VEHICLE WITH SPOUSE FROM A WHEELCHAIR.
== END 2023-03-30 11:44 | disposition home or self-care (01) | DRG 871 ==
LOC: ER 07:07 → ED HOLD 09:39 → ORTHO 4S 19:35
PROVIDERS: ADMIT Family Medicine; ATTEND Family Medicine
PROC: 5A09357 Assistance with Respiratory Ventilation, Less than 24 Consecutive Hours, Continuous Positive Airway Pressure (ICD-10-PCS; principal; 2023-03-28)
DX: A41.9 Sepsis, unspecified organism (principal); J18.9 Pneumonia, unspecified organism; J96.00 Acute respiratory failure, unspecified whether with hypoxia or hypercapnia; N39.0 Urinary tract infection, site not specified; E87.4 Mixed disorder of acid-base balance; J44.0 Chronic obstructive pulmonary disease with (acute) lower respiratory infection; I50.30 Unspecified diastolic (congestive) heart failure; Z20.822 Contact with and (suspected) exposure to COVID-19; R65.20 Severe sepsis without septic shock; B96.20 Unspecified Escherichia coli [E. coli] as the cause of diseases classified elsewhere; D64.9 Anemia, unspecified; E78.00 Pure hypercholesterolemia, unspecified; I25.10 Atherosclerotic heart disease of native coronary artery without angina pectoris; I34.81 Nonrheumatic mitral (valve) annulus calcification; I48.91 Unspecified atrial fibrillation; N28.9 Disorder of kidney and ureter, unspecified; N40.0 Benign prostatic hyperplasia without lower urinary tract symptoms; I11.0 Hypertensive heart disease with heart failure; I25.2 Old myocardial infarction; Z82.3 Family history of stroke; Z86.73 Personal history of transient ischemic attack (TIA), and cerebral infarction without residual deficits; Z87.891 Personal history of nicotine dependence; Z88.2 Allergy status to sulfonamides; Z95.5 Presence of coronary angioplasty implant and graft; Z95.810 Presence of automatic (implantable) cardiac defibrillator; Z79.01 Long term (current) use of anticoagulants; Z79.899 Other long term (current) drug therapy
CPT/HCPCS: 36415; 36600; 71045; 80053; 81001; 82803; 83605; 83735; 83880; 84145; 84484; 85018; 85025; 85610; 87040; 87077; 87081; 87088; 87186; 87811; 93005; 93306; 94640; 94660; 94760; 96365; 96375; 97116; 97161; 97530; 99291; G0378; J0456; J0696; J1644; J2930; J7030

== ENCOUNTER 2023-07-23 23:28 | Inpatient (IN) | payer MEDICARE ==
[~2023-07-23] VITALS: Ht 177.8 cm; Wt 91.0 kg
[~2023-07-23 23:28] MED LIST changes: -APIX5TAB3 PO; -ASPI-257; +CEFU500T66 PO; -FERR134T2 PO; +FINA5TAB11 PO; +PRED20TA PO; +ROSU20TA73 PO; +WARF3TAB56 PO; -ZOC40T PO
[2023-07-24] VITALS (14 sets, daily range): BP systolic 136–137; BP diastolic 52–82; PULSE 70–104; RESP 16–21; TEMP 97.9–98; O2SAT 95–96
[2023-07-24] MEDS: normal saline 1000ml 1,000 ML IV ONE (00:54)
[2023-07-24] MEDS: CefTRIAXone/D5W-Rocephin 1gm 50 ML IV ONE (00:54)
[2023-07-24] MEDS: azithromycin/NS 500mg/250ml 250 ML IV ONE (00:55)
[2023-07-24 01:09] LABS: BASOPHILS % (AUTO) 0.2 % (0-1); EOSINOPHILS % (AUTO) 0.2 % (0-6); HEMATOCRIT 34.9 % (42.0-52.0); LYMPHOCYTES # (AUTO) 0.9 X10'3 (1.1-4.8); LYMPHOCYTES % (AUTO) 6.2 % (21-51); MEAN CORPUSCULAR HEMOGLOBIN 31.3 PG (27.0-31.0); MEAN CORPUSCULAR HGB CONC 34.3 g/dL (33.0-36.5); MEAN CORPUSCULAR VOLUME 91.1 FL (78-98); MEAN PLATELET VOLUME 8.8 FL (7.4-10.4); MONOCYTES % (AUTO) 6.8 % (2-12); NEUTROPHILS # (AUTO) 12.6 X10'3 (1.8-7.7); NEUTROPHILS % (AUTO) 86.6 % (42-75); PLATELET COUNT 190 X10'3 (140-440); RED BLOOD COUNT 3.83 X10'6 (4.70-6.10); RED CELL DISTRIBUTION WIDTH 13.9 % (11.5-14.5); WHITE BLOOD COUNT 14.5 X10'3 (4.5-11.0)
[2023-07-24 01:25] LABS: ALANINE AMINOTRANSFERASE 18 U/L (12-78); ALBUMIN 3.2 G/DL (3.4-5.0); ALBUMIN/GLOBULIN RATIO 0.9 (1.1-1.5); ALKALINE PHOSPHATASE 56 IU/L (46-116); ANION GAP 11 (8-16); ASPARTATE AMINO TRANSFERASE 16 U/L (10-37); BILIRUBIN,TOTAL 0.5 MG/DL (0.1-1.0); BLOOD UREA NITROGEN 23 MG/DL (7-18); BUN/CREATININE RATIO 13.7 (10.0-20.0); CALCIUM 8.5 MG/DL (8.5-10.1); CHLORIDE 105 MMOL/L (99-107); CREATININE 1.68 MG/DL (0.60-1.10); GLUCOSE 141 MG/DL (70-104); SODIUM 140 MMOL/L (135-145); TOTAL PROTEIN 6.9 G/DL (6.4-8.2); eCRCL 33 ML/MIN; eGFR 39 ML/MIN
[2023-07-24 01:33] LABS: PRO BRAIN NATRIURETIC PEPTIDE 997 PG/ML (0-450)
[2023-07-24] MEDS: acetaminophen 325mg tablet PO ONE (01:50)
[2023-07-24] MEDS ORDERED: ASPI-611 PO (02:00)
[2023-07-24] MEDS ORDERED: magnesium Cl slow-release 64mg tablet PO PRN (03:00)
[2023-07-24] MEDS ORDERED: ondansetron/PF 4mg/2ml inj IV PRN (03:00)
[2023-07-24] MEDS ORDERED: potassium Cl 20 mEq SR tablet PO PRN ×2 (03:00)
[2023-07-24] MEDS ORDERED: magnesium 4gm in 100ml NS 100 ML IV PRN (03:00)
[2023-07-24] MEDS ORDERED: potassium Cl 40MEQ/1/2NS 520ml 520 ML IV PRN (03:00)
[2023-07-24] MEDS ORDERED: acetaminophen 325mg tablet PO PRN (03:00)
[2023-07-24] MEDS ORDERED: HYDROcodone/acetaminophen 10/325mg tab PO PRN (03:00)
[2023-07-24] MEDS ORDERED: magnesium hydroxide 30ml (MOM) UD suspension PO PRN (03:00)
[2023-07-24] MEDS ORDERED: mag hydrox/Alum hydrox/simeth 30ml oral suspension PO PRN (03:00)
[2023-07-24] MEDS: traZODone 50mg tablet PO SCH (03:15)
[2023-07-24] MEDS: normal saline 1000ml 1,000 ML IV STA (03:19)
[2023-07-24] MEDS: normal saline 1000ml 1,000 ML IV SCH (03:56)
[2023-07-24 04:15] LABS: PRO BRAIN NATRIURETIC PEPTIDE 1228 PG/ML (0-450)
[2023-07-24 06:17] LABS: BILIRUBIN,URINE NEGATIVE (Neg); CLARITY,URINE SLIGHTLY CLOUDY (Clear); COLOR,URINE YELLOW (Yellow); GLUCOSE, URINE NEGATIVE (Neg); KETONES,URINE NEGATIVE (Neg); LEUKOCYTE ESTERASE ,URINE TRACE (Neg); NITRITES, URINE POSITIVE (Neg); OCCULT BLOOD,URINE NEGATIVE (Neg); PROTEIN,URINE NEGATIVE (Neg); UROBILINOGEN,URINE 0.2 E.U/dL (0.2-1.0)
[2023-07-24 06:26] LABS: UA COLLECTION TYPE NON-SPECIFIED
[2023-07-24 07:05] LABS: RBC,URINE 0-2 /HPF (0-2); WBC,URINE 20-30 /HPF (0-4)
[2023-07-24 07:06] LABS: BACTERIA,URINE FEW /HPF (Neg)
[2023-07-24 07:09] LABS: WBC CLUMPS,URINE FEW /HPF (NEGATIVE)
[2023-07-24 07:10] LABS: SQUAMOUS EPITHELIAL CELL,UR MANY /LPF (FEW); TRANSITIONAL EPI CELLS,URINE MODERATE /HPF
[2023-07-24 07:12] LABS: MUCUS STRANDS FEW /LPF (Neg)
[2023-07-24] MEDS: methylPREDNISolone sod succ/PF 40mg inj. IV SCH (08:10)
[2023-07-24] MEDS: levoFLOXACIN-Levaquin 500mg/D5 100 ML IV SCH (08:10)
[2023-07-24] MEDS: docusate sod 100mg capsule PO SCH (08:12)
[2023-07-24] MEDS: ipratropium/albuterol 3ml nebule NEB SCH (09:02)
[2023-07-24] MEDS: azithromycin 250mg tablet PO SCH (11:34)
[2023-07-24] MEDS: CefTRIAXone/D5W-Rocephin 1gm 50 ML IV SCH (11:34)
[2023-07-25] VITALS (8 sets, daily range): BP systolic 123–154; BP diastolic 72–87; PULSE 79–109; RESP 18–24; TEMP 97.5–97.9; O2SAT 92–97
[2023-07-25] MEDS: metoprolol tartrate 50mg tablet PO ONE (04:49)
[2023-07-25 04:57] LABS: BASOPHILS % (AUTO) 0.1 % (0-1); EOSINOPHILS % (AUTO) 0 % (0-6); HEMATOCRIT 32.8 % (42.0-52.0); HEMOGLOBIN 11.3 g/dl (14.0-17.9); LYMPHOCYTES # (AUTO) 0.7 X10'3 (1.1-4.8); LYMPHOCYTES % (AUTO) 8.4 % (21-51); MEAN CORPUSCULAR HEMOGLOBIN 31.4 PG (27.0-31.0); MEAN CORPUSCULAR HGB CONC 34.5 g/dL (33.0-36.5); MEAN PLATELET VOLUME 8.9 FL (7.4-10.4); MONOCYTES # (AUTO) 0.1 X10'3 (0-0.9); MONOCYTES % (AUTO) 1.7 % (2-12); NEUTROPHILS # (AUTO) 7.7 X10'3 (1.8-7.7); NEUTROPHILS % (AUTO) 89.8 % (42-75); PLATELET COUNT 181 X10'3 (140-440); WHITE BLOOD COUNT 8.6 X10'3 (4.5-11.0)
[2023-07-25 05:05] LABS: INR 1.8 INR; PROTHROMBIN TIME 18.2 SECONDS (9.0-12.0)
[2023-07-25 05:13] LABS: ALBUMIN 3.1 G/DL (3.4-5.0); ANION GAP 12 (8-16); BLOOD UREA NITROGEN 21 MG/DL (7-18); BUN/CREATININE RATIO 14.1 (10.0-20.0); CALCIUM 8.8 MG/DL (8.5-10.1); CHLORIDE 110 MMOL/L (99-107); CREATININE 1.49 MG/DL (0.60-1.10); GLUCOSE 168 MG/DL (70-104); MAGNESIUM 2.1 MG/DL (1.5-2.4); PHOSPHORUS 1.9 MG/DL (2.3-4.5); POTASSIUM 3.7 MMOL/L (3.5-5.1); SODIUM 143 MMOL/L (135-145); TOTAL CARBON DIOXIDE 20.6 MMOL/L (24-32); eCRCL 37 ML/MIN; eGFR 45 ML/MIN
[2023-07-25] MEDS ORDERED: losartan 25mg tablet PO SCH ×3 (10:45→11:09)
[2023-07-25] MEDS ORDERED: metoprolol succinate 25mg (24-HOUR) SR. Tablet PO SCH (11:08)
[2023-07-25] MEDS: ALPRAZolam 0.5mg tablet PO SCH (11:30)
[2023-07-25] MEDS: metoprolol succinate 25mg (24-HOUR) SR. Tablet PO SCH (11:31)
[2023-07-25] MEDS: aspirin 81mg, enteric-coated 1 TAB TABLET.DR PO SCH (11:31)
[2023-07-25] MEDS ORDERED: BUDE10.2 INH (12:32)
[2023-07-25] MEDS ORDERED: PRED20TA PO (16:10)
[2023-07-25] MEDS ORDERED: LACT1CAP74 PO (16:10)
[2023-07-25] MEDS ORDERED: CEFD300C3 PO (16:10)
[2023-07-25] MEDS ORDERED: warfarin 3mg tablet PO SCH (21:00)
== END 2023-07-25 17:06 | disposition home health service (06) | DRG 871 ==
LOC: ER 23:30 → ED HOLD 07-24 03:08 → EDBEDREQ 07-24 05:29 → PCU 3S 07-24 17:13
PROVIDERS: ADMIT Internal Medicine; ATTEND Family Medicine
DX: A41.9 Sepsis, unspecified organism (principal); J69.0 Pneumonitis due to inhalation of food and vomit; J96.21 Acute and chronic respiratory failure with hypoxia; J44.1 Chronic obstructive pulmonary disease with (acute) exacerbation; I48.20 Chronic atrial fibrillation, unspecified; J44.0 Chronic obstructive pulmonary disease with (acute) lower respiratory infection; Z20.822 Contact with and (suspected) exposure to COVID-19; I25.10 Atherosclerotic heart disease of native coronary artery without angina pectoris; N40.0 Benign prostatic hyperplasia without lower urinary tract symptoms; E78.00 Pure hypercholesterolemia, unspecified; I95.9 Hypotension, unspecified; I12.9 Hypertensive chronic kidney disease with stage 1 through stage 4 chronic kidney disease, or unspecified chronic kidney disease; N18.9 Chronic kidney disease, unspecified; I25.2 Old myocardial infarction; Z95.5 Presence of coronary angioplasty implant and graft; Z90.49 Acquired absence of other specified parts of digestive tract; Z95.0 Presence of cardiac pacemaker; Z88.2 Allergy status to sulfonamides; Z79.82 Long term (current) use of aspirin; Z79.899 Other long term (current) drug therapy; Z99.81 Dependence on supplemental oxygen; Z87.891 Personal history of nicotine dependence; Z82.3 Family history of stroke
CPT/HCPCS: 36415; 71045; 80048; 80053; 81001; 83605; 83735; 83880; 84100; 84145; 84484; 85025; 85610; 87040; 87502; 87503; 87811; 92508; 92616; 93005; 94640; 94760; 99285; A4338; C1758; G0378; J0456; J0696; J1956; J2920; J7030

== ENCOUNTER 2023-10-10 05:53 | Day surgery (SDC) | payer MEDICARE ==
[2023-10-09 09:46] LABS: BASOPHILS % (AUTO) 0.3 % (0-1); EOSINOPHILS # (AUTO) 0.2 X10'3 (0-0.9); EOSINOPHILS % (AUTO) 1.9 % (0-6); HEMATOCRIT 39.2 % (42.0-52.0); HEMOGLOBIN 13.5 g/dl (14.0-17.9); LYMPHOCYTES # (AUTO) 1.6 X10'3 (1.1-4.8); LYMPHOCYTES % (AUTO) 18.2 % (21-51); MEAN CORPUSCULAR HEMOGLOBIN 31.8 PG (27.0-31.0); MEAN CORPUSCULAR HGB CONC 34.4 g/dL (33.0-36.5); MEAN CORPUSCULAR VOLUME 92.6 FL (78-98); MEAN PLATELET VOLUME 9.1 FL (7.4-10.4); MONOCYTES # (AUTO) 0.7 X10'3 (0-0.9); MONOCYTES % (AUTO) 7.4 % (2-12); NEUTROPHILS # (AUTO) 6.5 X10'3 (1.8-7.7); NEUTROPHILS % (AUTO) 72.2 % (42-75); PLATELET COUNT 149 X10'3 (140-440); RED BLOOD COUNT 4.23 X10'6 (4.70-6.10); RED CELL DISTRIBUTION WIDTH 14.8 % (11.5-14.5)
[2023-10-09 09:54] LABS: ALBUMIN 3.7 G/DL (3.4-5.0); ANION GAP 7 (8-16); BLOOD UREA NITROGEN 24 MG/DL (7-18); BUN/CREATININE RATIO 15.7 (10.0-20.0); CALCIUM 9.2 MG/DL (8.5-10.1); CHLORIDE 104 MMOL/L (99-107); CREATININE 1.53 MG/DL (0.60-1.10); GLUCOSE 117 MG/DL (70-104); POTASSIUM 4.1 MMOL/L (3.5-5.1); SODIUM 138 MMOL/L (135-145); TOTAL CARBON DIOXIDE 27.1 MMOL/L (24-32); eGFR 43 ML/MIN
[2023-10-09 09:58] LABS: APTT 27 SECONDS (22-32); INR 1.3 INR; PROTHROMBIN TIME 13.5 SECONDS (9.0-12.0)
[~2023-10-10] VITALS: Ht 177.8 cm; Wt 87.1 kg
[2023-10-10] VITALS (8 sets, daily range): BP systolic 106–130; BP diastolic 48–67; PULSE 65–72; RESP 14–19; O2SAT 95–98
[~2023-10-10 05:53] MED LIST changes: +ASPI-611 PO; +BUDE10.2 INH; -CEFU500T66 PO; +LACT1CAP74 PO; -PRED20TA PO
[2023-10-10] MEDS ORDERED: TRAZ-251 PO (06:40)
[2023-10-10] MEDS ORDERED: FERR-116 PO (06:40)
[2023-10-10] MEDS ORDERED: cefazolin 2gm/D5W 100mL 100 ML IV ONE (07:00)
[2023-10-10] MEDS ORDERED: ceFAZolin 1000mg inj ONE (07:44)
[2023-10-10] MEDS ORDERED: fentaNYL/PF 50MCG/1 ML 2ML syringe ONE (07:44)
[2023-10-10] MEDS ORDERED: midazolam 1 mg/ML 2ml injection ONE ×2 (07:44→09:25)
[2023-10-10] MEDS ORDERED: LIDOcaine 1% W/epiNEPHrine 1:100,000 20ml vial ONE (07:44)
[2023-10-10] MEDS ORDERED: diphenhydrAMINE 50 mg/ml inj ONE (08:32)
[2023-10-10] MEDS ORDERED: HYDROmorphone 1 mg/ml syringe ONE (08:37)
[2023-10-10] MEDS ORDERED: HYDROcodone/acetaminophen 10/325mg tab PO PRN (10:15)
[2023-10-10] MEDS ORDERED: HYDROcodone/acetaminophen 5mg/325mg tablet PO PRN (10:15)
[2023-10-10] MEDS ORDERED: sod chloride 0.9% 10ml flush syringe IV SCH (16:00)
== END 2023-10-10 13:05 | disposition home or self-care (01) ==
LOC: SSTAY O 05:53
PROVIDERS: ATTEND Internal Medicine Cardiovascular Disease
DX: T82.111A Breakdown (mechanical) of cardiac pulse generator (battery), initial encounter (principal); I11.0 Hypertensive heart disease with heart failure; I50.22 Chronic systolic (congestive) heart failure; I25.10 Atherosclerotic heart disease of native coronary artery without angina pectoris; E78.5 Hyperlipidemia, unspecified; J44.9 Chronic obstructive pulmonary disease, unspecified; I48.0 Paroxysmal atrial fibrillation; I42.9 Cardiomyopathy, unspecified; I25.2 Old myocardial infarction; M19.90 Unspecified osteoarthritis, unspecified site; Z79.82 Long term (current) use of aspirin; Z79.01 Long term (current) use of anticoagulants; Z79.891 Long term (current) use of opiate analgesic; Z79.899 Other long term (current) drug therapy; Z95.5 Presence of coronary angioplasty implant and graft; Z90.49 Acquired absence of other specified parts of digestive tract; Z98.890 Other specified postprocedural states; Y71.2 Prosthetic and other implants, materials and accessory cardiovascular devices associated with adverse incidents; Y92.89 Other specified places as the place of occurrence of the external cause
CPT/HCPCS: 33264; 36415; 80048; 85025; 85610; 85730; 93005; 99152; 99153; C1882; J0690; J1170; J1200; J2250; J3010; J3490; J7030; A6258; A6402; A6449

== ENCOUNTER 2024-04-28 08:40 | Inpatient (IN) | payer MEDICARE ==
[~2024-04-28] VITALS: Ht 177.8 cm; Wt 90.2 kg
[2024-04-28] MEDS: normal saline 1000ML IV soln IVB ONE (07:59)
[~2024-04-28 08:40] MED LIST changes: +FERR-116 PO; -LACT1CAP74 PO; -ROSU20TA73 PO; +ROSU20TA98 PO; +TRAZ-251 PO
[2024-04-28] MEDS: normal saline 1000ml 1,000 ML IV ONE (08:50)
[2024-04-28] MEDS: CefTRIAXone 2gm/D5W 50ml BAG 50 ML IV ONE (08:59)
[2024-04-28] MEDS: acetaminophen 1,000mg/100ml IV 100 ML IV ONE (09:00)
[2024-04-28] MEDS: normal saline 1000ml 1,000 ML IVB ONE ×2 (09:20→11:18)
[2024-04-28] MEDS: albuterol 2.5 MG/3 ML nebule ONE (09:25)
[2024-04-28] MEDS: ondansetron/PF 4mg/2ml inj IV ONE (09:30)
[2024-04-28] MEDS: albuterol 2.5 MG/3 ML nebule NEB ONE (09:35)
[2024-04-28] MEDS: azithromycin/NS 500mg/250ml 250 ML IV ONE (09:36)
[2024-04-28 09:39] VITALS: PULSE 107; PULSE 117; RESP 28; RESP 32; O2SAT 96
[2024-04-28 09:50] LABS: BASOPHILS % (AUTO) 0.1 % (0-1); EOSINOPHILS # (AUTO) 0.1 X10'3 (0-0.9); EOSINOPHILS % (AUTO) 0.9 % (0-6); HEMATOCRIT 40.2 % (42.0-52.0); HEMOGLOBIN 13.7 g/dl (14.0-17.9); LYMPHOCYTES # (AUTO) 0.6 X10'3 (1.1-4.8); LYMPHOCYTES % (AUTO) 8.1 % (21-51); MEAN CORPUSCULAR VOLUME 93.9 FL (78-98); MEAN PLATELET VOLUME 9.7 FL (7.4-10.4); MONOCYTES # (AUTO) 0.2 X10'3 (0-0.9); MONOCYTES % (AUTO) 2.2 % (2-12); NEUTROPHILS # (AUTO) 6.1 X10'3 (1.8-7.7); NEUTROPHILS % (AUTO) 88.7 % (42-75); PLATELET COUNT 146 X10'3 (140-440); RED BLOOD COUNT 4.28 X10'6 (4.70-6.10); RED CELL DISTRIBUTION WIDTH 13.8 % (11.5-14.5); WHITE BLOOD COUNT 6.9 X10'3 (4.5-11.0)
[2024-04-28 10:02] LABS: APTT 31 SECONDS (22-32); INR 2.6 INR; PROTHROMBIN TIME 25.7 SECONDS (9.0-12.0)
[2024-04-28 11:12] LABS: ALANINE AMINOTRANSFERASE 16 U/L (12-78); ALBUMIN 3.5 G/DL (3.4-5.0); ALKALINE PHOSPHATASE 95 IU/L (46-116); ANION GAP 11 (8-16); ASPARTATE AMINO TRANSFERASE 11 U/L (10-37); BILIRUBIN,TOTAL 0.6 MG/DL (0.1-1.0); BLOOD UREA NITROGEN 28 MG/DL (7-18); BUN/CREATININE RATIO 13.4 (10.0-20.0); CALCIUM 8.3 MG/DL (8.5-10.1); CHLORIDE 105 MMOL/L (99-107); CREATININE 2.09 MG/DL (0.60-1.10); GLUCOSE 134 MG/DL (70-104); POTASSIUM 4.3 MMOL/L (3.5-5.1); SODIUM 139 MMOL/L (135-145); TOTAL CARBON DIOXIDE 22.8 MMOL/L (24-32); TOTAL PROTEIN 6.9 G/DL (6.4-8.2); eCRCL 26 ML/MIN; eGFR 30 ML/MIN
[2024-04-28 11:20] LABS: BILIRUBIN,DIRECT 0.2 MG/DL (0-0.3); ETHANOL < 10 MG/DL (<10); MAGNESIUM 1.6 MG/DL (1.5-2.4)
[2024-04-28 12:04] LABS: ABG BASE EXCESS -8.4 mmol/L (-2.0-3.0); ABG HCO3 16.2 mmol/L (21.0-28.0); ABG OXYGEN SATURATION 92.1 % (94.0-98.0); ABG PCO2 (T) 31.1 mmHg (35.0-48.0); ABG PH (T) 7.337 (7.350-7.450); ABG PO2 (T) 66.4 mmHg (83.0-108.0); ALLEN'S TEST POSITIVE; FCOHb 0.3 % (0.5-1.5); FHHb 7.9 % (0.0-5.0); FLOW 4 L/min; FO2Hb 91.8 % (94.0-98.0); MODE NASAL CANNULA; PATIENT TEMPERATURE 37.3; TOTAL HEMOGLOBIN 11.2 G/dl (13.5-17.5)
[2024-04-28 12:52] LABS: BILIRUBIN,URINE NEGATIVE (Neg); CLARITY,URINE SLIGHTLY CLOUDY (Clear); COLOR,URINE YELLOW (Yellow); GLUCOSE, URINE NEGATIVE (Neg); KETONES,URINE NEGATIVE (Neg); LEUKOCYTE ESTERASE ,URINE NEGATIVE (Neg); NITRITES, URINE POSITIVE (Neg); OCCULT BLOOD,URINE LARGE (Neg); PH,URINE 5.5 (4.8-8.0); PROTEIN,URINE 30 mg/dl (Neg); UROBILINOGEN,URINE 0.2 E.U/dL (0.2-1.0)
[2024-04-28] MEDS: midazolam 1 mg/ML 2ml injection IV ONE (12:55)
[2024-04-28 12:57] LABS: UA COLLECTION TYPE FOLEY CATH
[2024-04-28 12:58] LABS: SQUAMOUS EPITHELIAL CELL,UR MANY /LPF (FEW)
[2024-04-28 12:59] LABS: TRANSITIONAL EPI CELLS,URINE MODERATE /HPF; WBC,URINE 50-100 /HPF (0-4)
[2024-04-28 13:00] LABS: AMORPHOUS URATES 2+; BACTERIA,URINE 1+ /HPF (Neg); RBC,URINE 50-100 /HPF (0-2); WBC CLUMPS,URINE FEW /HPF (NEGATIVE)
[2024-04-28] MEDS: ringers solution, lacted 1,000 ML IV ONE ×2 (13:25→13:30)
[2024-04-28] MEDS: NORepinephrine 8mg/ 250ml NS 250 ML IV SCH (13:57)
[2024-04-28] MEDS ORDERED: albuterol 2.5 MG/3 ML nebule NEB PRN (15:25)
[2024-04-28] MEDS ORDERED: magnesium hydroxide 30ml (MOM) UD suspension PO PRN (15:55)
[2024-04-28] MEDS ORDERED: morphine 4 MG/ML inj SYRINge IV PRN (15:55)
[2024-04-28] MEDS: ipratropium/albuterol 3ml nebule NEB SCH (16:09)
[2024-04-28 16:14] VITALS: PULSE 82; RESP 18; O2SAT 95
[2024-04-28 16:21] VITALS: PULSE 87; RESP 16
[2024-04-28] MEDS: azithromycin/NS 500mg/250ml 250 ML IV SCH (16:37)
[2024-04-28] MEDS: heparin, porcine 5000 units/ml vial SQ SCH (16:42)
[2024-04-28 17:38] LABS: MAGNESIUM 1.4 MG/DL (1.5-2.4); PHOSPHORUS 2.9 MG/DL (2.3-4.5); THYROID STIMULATING HORMONE 0.36 ulU/ml (0.34-4.50)
[2024-04-28] MEDS ORDERED: ALPRAZolam 0.5mg tablet PO PRN (17:45)
[2024-04-28] MEDS ORDERED: traZODone 50mg tablet PO PRN (17:45)
[2024-04-28] MEDS ORDERED: tamsulosin 0.4mg capsule PO SCH (17:45)
[2024-04-28 20:19] LABS: ALBUMIN 2.9 G/DL (3.4-5.0); ANION GAP 11 (8-16); BLOOD UREA NITROGEN 25 MG/DL (7-18); BUN/CREATININE RATIO 12.1 (10.0-20.0); CALCIUM 7.7 MG/DL (8.5-10.1); CHLORIDE 111 MMOL/L (99-107); CREATININE 2.07 MG/DL (0.60-1.10); GLUCOSE 133 MG/DL (70-104); PHOSPHORUS 3.1 MG/DL (2.3-4.5); POTASSIUM 4.1 MMOL/L (3.5-5.1); SODIUM 144 MMOL/L (135-145); TOTAL CARBON DIOXIDE 21.6 MMOL/L (24-32); eCRCL 26 ML/MIN; eGFR 31 ML/MIN
[2024-04-28 20:31] LABS: BASOPHILS # (AUTO) 0.1 X10'3 (0-0.2); BASOPHILS % (AUTO) 0.3 % (0-1); EOSINOPHILS % (AUTO) 0.1 % (0-6); HEMATOCRIT 34.6 % (42.0-52.0); HEMOGLOBIN 11.7 g/dl (14.0-17.9); LYMPHOCYTES # (AUTO) 0.9 X10'3 (1.1-4.8); LYMPHOCYTES % (AUTO) 4.9 % (21-51); MEAN CORPUSCULAR HEMOGLOBIN 31.7 PG (27.0-31.0); MEAN CORPUSCULAR HGB CONC 33.9 g/dL (33.0-36.5); MEAN CORPUSCULAR VOLUME 93.5 FL (78-98); MEAN PLATELET VOLUME 9.9 FL (7.4-10.4); MONOCYTES % (AUTO) 5.5 % (2-12); NEUTROPHILS # (AUTO) 15.9 X10'3 (1.8-7.7); NEUTROPHILS % (AUTO) 89.2 % (42-75); PLATELET COUNT 135 X10'3 (140-440); RED CELL DISTRIBUTION WIDTH 13.9 % (11.5-14.5); WHITE BLOOD COUNT 17.8 X10'3 (4.5-11.0)
[2024-04-28] MEDS: magnesium oxide 400mg tablet PO ONE (20:34)
[2024-04-28] MEDS: acetaminophen 325mg tablet PO PRN (20:34)
[2024-04-28] MEDS: magnesium sulf-water 2g/50mL 50 ML IV ONE (20:34)
[2024-04-28 20:36] VITALS: PULSE 78; RESP 18; O2SAT 94
[2024-04-28 20:45] VITALS: PULSE 79; RESP 16
[2024-04-28] MEDS: heparin 10,000 units/1 ML INJ IV ONE (21:05)
[2024-04-28] MEDS ORDERED: heparin 10,000 units/1 ML INJ IV PRN (21:05)
[2024-04-28] MEDS: HEPARIN DRIP-CARDIAC**PHARMACIST-TO-DOSE IV ONE ×2 (21:05→22:05)
[2024-04-28] MEDS ORDERED: heparin 25,000 UNIT/250ml bag 250 ML IV PRN (21:05)
[2024-04-28] MEDS: warfarin 3mg tablet PO ONE (21:34)
[2024-04-28 21:42] LABS: PRO BRAIN NATRIURETIC PEPTIDE 1593 PG/ML (0-450)
[2024-04-28 21:50] LABS: APTT 50 SECONDS (22-32); INR 2.6 INR; PROTHROMBIN TIME 25.3 SECONDS (9.0-12.0)
[2024-04-28] MEDS: ondansetron/PF 4mg/2ml inj IV PRN (22:31)
[2024-04-28] MEDS: morphine 2 MG/ML inj. syringe IV PRN (22:32)
[2024-04-28 23:00] VITALS: BP 109/53; PULSE 85; RESP 18; RESP 27; O2SAT 95; O2SAT 96
[2024-04-29] VITALS (54 sets, daily range): BP systolic 96–161; BP diastolic 43–80; PULSE 66–108; RESP 15–27; O2SAT 86–98
[2024-04-29] MEDS: traZODone 50mg tablet PO PRN (00:03)
[2024-04-29] MEDS ORDERED: TRAZ-251 PO (00:49)
[2024-04-29 02:45] LABS: BASOPHILS # (AUTO) 0.1 X10'3 (0-0.2); BASOPHILS % (AUTO) 0.4 % (0-1); EOSINOPHILS # (AUTO) 0.1 X10'3 (0-0.9); EOSINOPHILS % (AUTO) 0.6 % (0-6); HEMATOCRIT 30.2 % (42.0-52.0); HEMOGLOBIN 10.4 g/dl (14.0-17.9); LYMPHOCYTES # (AUTO) 1.5 X10'3 (1.1-4.8); LYMPHOCYTES % (AUTO) 9.2 % (21-51); MEAN CORPUSCULAR HEMOGLOBIN 32.4 PG (27.0-31.0); MEAN CORPUSCULAR HGB CONC 34.5 g/dL (33.0-36.5); MEAN CORPUSCULAR VOLUME 93.8 FL (78-98); MEAN PLATELET VOLUME 9.7 FL (7.4-10.4); MONOCYTES % (AUTO) 6.1 % (2-12); NEUTROPHILS # (AUTO) 13.7 X10'3 (1.8-7.7); NEUTROPHILS % (AUTO) 83.7 % (42-75); PLATELET COUNT 120 X10'3 (140-440); RED BLOOD COUNT 3.22 X10'6 (4.70-6.10); RED CELL DISTRIBUTION WIDTH 14.1 % (11.5-14.5); WHITE BLOOD COUNT 16.4 X10'3 (4.5-11.0)
[2024-04-29 03:12] LABS: ALANINE AMINOTRANSFERASE 11 U/L (12-78); ALBUMIN 2.5 G/DL (3.4-5.0); ALBUMIN/GLOBULIN RATIO 0.9 (1.1-1.5); ALKALINE PHOSPHATASE 55 IU/L (46-116); ANION GAP 9 (8-16); ASPARTATE AMINO TRANSFERASE 15 U/L (10-37); BILIRUBIN,TOTAL 0.5 MG/DL (0.1-1.0); BLOOD UREA NITROGEN 23 MG/DL (7-18); BUN/CREATININE RATIO 12.8 (10.0-20.0); CALCIUM 7.6 MG/DL (8.5-10.1); CHLORIDE 110 MMOL/L (99-107); CREATININE 1.79 MG/DL (0.60-1.10); GLUCOSE 113 MG/DL (70-104); PHOSPHORUS 2.5 MG/DL (2.3-4.5); POTASSIUM 3.8 MMOL/L (3.5-5.1); SODIUM 142 MMOL/L (135-145); TOTAL CARBON DIOXIDE 23.3 MMOL/L (24-32); TOTAL PROTEIN 5.4 G/DL (6.4-8.2); eCRCL 30 ML/MIN; eGFR 36 ML/MIN
[2024-04-29] MEDS: COMMUNICATION ORDER 1 EA MISC MC ONE ×2 (03:15→08:00)
[2024-04-29] MEDS: aspirin 81mg, enteric-coated 1 TAB TABLET.DR PO SCH (07:29)
[2024-04-29] MEDS: atorvastatin 20mg tablet PO SCH (07:29)
[2024-04-29] MEDS: ferrous sulfate 325mg tablet PO SCH (07:30)
[2024-04-29] MEDS: pantoprazole 40 MG vial IV SCH (07:30)
[2024-04-29] MEDS: cyanocobalamin 500mcg tablet PO SCH (07:30)
[2024-04-29] MEDS: finasteride 5mg tablet PO SCH (07:31)
[2024-04-29 08:22] LABS: INR 2.6 INR; PROTHROMBIN TIME 25.1 SECONDS (9.0-12.0)
[2024-04-29] MEDS: CefTRIAXone/D5W-Rocephin 1gm 50 ML IV SCH (09:09)
[2024-04-29] MEDS: acetaminophen 325mg tablet PO PRN (12:56)
[2024-04-29] MEDS ORDERED: metoprolol tartrate 1mg/ml inj IV PRN (18:35)
[2024-04-29] MEDS ORDERED: nitroGLYCERIN 0.4mg SUBLingual tab SL PRN (18:35)
[2024-04-29] MEDS ORDERED: aminophylline 250mg/10ml inj. IV PRN (18:35)
[2024-04-29] MEDS: enoxaparin 80mg/0.8ml syringe SUBCUT SCH (19:55)
[2024-04-29] MEDS ORDERED: enoxaparin 40mg/0.4ml syringe SUBCUT SCH (20:00)
[2024-04-30] VITALS (35 sets, daily range): BP systolic 96–168; BP diastolic 35–93; PULSE 70–113; RESP 14–28; O2SAT 92–98
[2024-04-30 02:52] LABS: BASOPHILS % (AUTO) 0.4 % (0-1); EOSINOPHILS # (AUTO) 0.3 X10'3 (0-0.9); EOSINOPHILS % (AUTO) 2.7 % (0-6); HEMATOCRIT 29.5 % (42.0-52.0); HEMOGLOBIN 10.2 g/dl (14.0-17.9); LYMPHOCYTES # (AUTO) 0.7 X10'3 (1.1-4.8); LYMPHOCYTES % (AUTO) 5.7 % (21-51); MEAN CORPUSCULAR HEMOGLOBIN 32.2 PG (27.0-31.0); MEAN CORPUSCULAR HGB CONC 34.6 g/dL (33.0-36.5); MEAN CORPUSCULAR VOLUME 93.1 FL (78-98); MEAN PLATELET VOLUME 9.9 FL (7.4-10.4); MONOCYTES # (AUTO) 0.5 X10'3 (0-0.9); MONOCYTES % (AUTO) 4.3 % (2-12); NEUTROPHILS # (AUTO) 10.2 X10'3 (1.8-7.7); NEUTROPHILS % (AUTO) 86.9 % (42-75); PLATELET COUNT 108 X10'3 (140-440); RED BLOOD COUNT 3.17 X10'6 (4.70-6.10); RED CELL DISTRIBUTION WIDTH 14.2 % (11.5-14.5); WHITE BLOOD COUNT 11.7 X10'3 (4.5-11.0)
[2024-04-30 03:09] LABS: ALANINE AMINOTRANSFERASE 14 U/L (12-78); ALBUMIN 2.3 G/DL (3.4-5.0); ALBUMIN/GLOBULIN RATIO 0.7 (1.1-1.5); ALKALINE PHOSPHATASE 69 IU/L (46-116); ANION GAP 7 (8-16); ASPARTATE AMINO TRANSFERASE 10 U/L (10-37); BILIRUBIN,TOTAL 0.6 MG/DL (0.1-1.0); BLOOD UREA NITROGEN 20 MG/DL (7-18); BUN/CREATININE RATIO 12.3 (10.0-20.0); CALCIUM 8.3 MG/DL (8.5-10.1); CHLORIDE 109 MMOL/L (99-107); CREATININE 1.62 MG/DL (0.60-1.10); GLUCOSE 158 MG/DL (70-104); MAGNESIUM 2.1 MG/DL (1.5-2.4); PHOSPHORUS 2.2 MG/DL (2.3-4.5); POTASSIUM 3.9 MMOL/L (3.5-5.1); SODIUM 140 MMOL/L (135-145); TOTAL CARBON DIOXIDE 24.2 MMOL/L (24-32); TOTAL PROTEIN 5.5 G/DL (6.4-8.2); eCRCL 33 ML/MIN; eGFR 41 ML/MIN
[2024-04-30] MEDS: docusate sod 100mg capsule PO SCH (08:31)
[2024-04-30] MEDS: regadenoson 0.4mg/5ml syringe IV PRN (09:48)
[2024-04-30] MEDS: metoprolol succinate 25mg (24-HOUR) SR. Tablet PO ONE (20:36)
[2024-04-30] MEDS: bisoprolol 5mg tablet PO ONE (21:02)
[2024-05-01] VITALS (28 sets, daily range): BP systolic 88–136; BP diastolic 43–65; PULSE 68–101; RESP 16–28; TEMP 97–98; O2SAT 93–99
[2024-05-01 02:22] LABS: BASOPHILS % (AUTO) 0.4 % (0-1); EOSINOPHILS # (AUTO) 0.4 X10'3 (0-0.9); EOSINOPHILS % (AUTO) 4.6 % (0-6); HEMATOCRIT 30.7 % (42.0-52.0); HEMOGLOBIN 10.7 g/dl (14.0-17.9); LYMPHOCYTES # (AUTO) 1.2 X10'3 (1.1-4.8); LYMPHOCYTES % (AUTO) 12.5 % (21-51); MEAN CORPUSCULAR HEMOGLOBIN 32.2 PG (27.0-31.0); MEAN CORPUSCULAR HGB CONC 34.9 g/dL (33.0-36.5); MEAN CORPUSCULAR VOLUME 92.5 FL (78-98); MEAN PLATELET VOLUME 9.9 FL (7.4-10.4); MONOCYTES # (AUTO) 0.7 X10'3 (0-0.9); NEUTROPHILS # (AUTO) 7.1 X10'3 (1.8-7.7); NEUTROPHILS % (AUTO) 75.5 % (42-75); PLATELET COUNT 122 X10'3 (140-440); RED BLOOD COUNT 3.32 X10'6 (4.70-6.10); RED CELL DISTRIBUTION WIDTH 14.1 % (11.5-14.5); WHITE BLOOD COUNT 9.3 X10'3 (4.5-11.0)
[2024-05-01 02:41] LABS: ALANINE AMINOTRANSFERASE 11 U/L (12-78); ALBUMIN 2.5 G/DL (3.4-5.0); ALBUMIN/GLOBULIN RATIO 0.7 (1.1-1.5); ALKALINE PHOSPHATASE 61 IU/L (46-116); ANION GAP 6 (8-16); ASPARTATE AMINO TRANSFERASE 11 U/L (10-37); BILIRUBIN,TOTAL 0.6 MG/DL (0.1-1.0); BLOOD UREA NITROGEN 17 MG/DL (7-18); CALCIUM 8.2 MG/DL (8.5-10.1); CHLORIDE 109 MMOL/L (99-107); CREATININE 1.55 MG/DL (0.60-1.10); GLUCOSE 108 MG/DL (70-104); MAGNESIUM 2.1 MG/DL (1.5-2.4); PHOSPHORUS 2.4 MG/DL (2.3-4.5); POTASSIUM 3.9 MMOL/L (3.5-5.1); SODIUM 142 MMOL/L (135-145); TOTAL CARBON DIOXIDE 27.1 MMOL/L (24-32); TOTAL PROTEIN 6.1 G/DL (6.4-8.2); eCRCL 35 ML/MIN; eGFR 43 ML/MIN
[2024-05-01] MEDS: metoprolol succinate 25mg (24-HOUR) SR. Tablet PO SCH (08:05)
[2024-05-01] MEDS: losartan 25mg tablet PO SCH (08:06)
[2024-05-01] MEDS: tamsulosin 0.4mg capsule PO SCH (08:07)
[2024-05-01] MEDS: lactose-reduced food (Ensure Enlive) - 237ml bottle PO SCH (13:08)
[2024-05-02 02:00] VITALS: BP 131/74; PULSE 80; RESP 20; TEMP 97; O2SAT 97
[2024-05-02 07:00] VITALS: BP 134/82; PULSE 82; RESP 20; TEMP 97.6; O2SAT 98
[2024-05-02 07:29] LABS: BASOPHILS % (AUTO) 0.4 % (0-1); EOSINOPHILS # (AUTO) 0.6 X10'3 (0-0.9); HEMATOCRIT 31.3 % (42.0-52.0); HEMOGLOBIN 11.1 g/dl (14.0-17.9); LYMPHOCYTES # (AUTO) 1.1 X10'3 (1.1-4.8); MEAN CORPUSCULAR HEMOGLOBIN 32.7 PG (27.0-31.0); MEAN CORPUSCULAR HGB CONC 35.5 g/dL (33.0-36.5); MEAN CORPUSCULAR VOLUME 92.3 FL (78-98); MEAN PLATELET VOLUME 10.8 FL (7.4-10.4); MONOCYTES # (AUTO) 0.7 X10'3 (0-0.9); NEUTROPHILS # (AUTO) 5.9 X10'3 (1.8-7.7); NEUTROPHILS % (AUTO) 71.6 % (42-75); PLATELET COUNT 138 X10'3 (140-440); RED BLOOD COUNT 3.39 X10'6 (4.70-6.10); RED CELL DISTRIBUTION WIDTH 13.9 % (11.5-14.5); WHITE BLOOD COUNT 8.2 X10'3 (4.5-11.0)
[2024-05-02 07:41] LABS: ALANINE AMINOTRANSFERASE 16 U/L (12-78); ALBUMIN 2.6 G/DL (3.4-5.0); ALBUMIN/GLOBULIN RATIO 0.7 (1.1-1.5); ALKALINE PHOSPHATASE 85 IU/L (46-116); ANION GAP 6 (8-16); ASPARTATE AMINO TRANSFERASE 18 U/L (10-37); BILIRUBIN,TOTAL 0.6 MG/DL (0.1-1.0); BLOOD UREA NITROGEN 21 MG/DL (7-18); CALCIUM 8.6 MG/DL (8.5-10.1); CHLORIDE 106 MMOL/L (99-107); CREATININE 1.62 MG/DL (0.60-1.10); GLUCOSE 107 MG/DL (70-104); POTASSIUM 3.9 MMOL/L (3.5-5.1); SODIUM 140 MMOL/L (135-145); TOTAL CARBON DIOXIDE 27.9 MMOL/L (24-32); TOTAL PROTEIN 6.5 G/DL (6.4-8.2); eCRCL 33 ML/MIN; eGFR 41 ML/MIN
[2024-05-02 08:00] VITALS: RESP 20; O2SAT 98
[2024-05-02 08:27] VITALS: PULSE 68; RESP 17; O2SAT 98
[2024-05-02 08:33] VITALS: PULSE 78; RESP 18
[2024-05-02 11:00] VITALS: BP 101/62; PULSE 86; RESP 21; TEMP 98.4; O2SAT 95
== END 2024-05-02 14:14 | disposition home or self-care (01) | DRG 871 ==
LOC: ER 08:41 → ED HOLD 16:00 → CICU 2S 23:08 → PCU 3S 05-01 17:29
PROVIDERS: ADMIT Internal Medicine Critical Care Medicine; ATTEND Internal Medicine Critical Care Medicine
PROC: 02HV33Z Insertion of Infusion Device into Superior Vena Cava, Percutaneous Approach (ICD-10-PCS; principal; 2024-04-28)
PROC: B548ZZA Ultrasonography of Superior Vena Cava, Guidance (ICD-10-PCS; 2024-04-28)
PROC: 4A02XM4 Measurement of Cardiac Total Activity, External Approach (ICD-10-PCS; 2024-04-30)
PROC: 3E033HZ Introduction of Radioactive Substance into Peripheral Vein, Percutaneous Approach (ICD-10-PCS; 2024-04-30)
DX: A41.9 Sepsis, unspecified organism (principal); I21.A1 Myocardial infarction type 2; J18.9 Pneumonia, unspecified organism; R65.21 Severe sepsis with septic shock; N17.0 Acute kidney failure with tubular necrosis; J96.21 Acute and chronic respiratory failure with hypoxia; I13.0 Hypertensive heart and chronic kidney disease with heart failure and stage 1 through stage 4 chronic kidney disease, or unspecified chronic kidney disease; N30.00 Acute cystitis without hematuria; J44.1 Chronic obstructive pulmonary disease with (acute) exacerbation; J44.0 Chronic obstructive pulmonary disease with (acute) lower respiratory infection; I50.30 Unspecified diastolic (congestive) heart failure; Z20.822 Contact with and (suspected) exposure to COVID-19; N40.0 Benign prostatic hyperplasia without lower urinary tract symptoms; N18.9 Chronic kidney disease, unspecified; I25.10 Atherosclerotic heart disease of native coronary artery without angina pectoris; I48.91 Unspecified atrial fibrillation; E78.00 Pure hypercholesterolemia, unspecified; I25.2 Old myocardial infarction; Z88.2 Allergy status to sulfonamides; Z79.82 Long term (current) use of aspirin; Z79.899 Other long term (current) drug therapy; Z90.49 Acquired absence of other specified parts of digestive tract; Z87.891 Personal history of nicotine dependence; Z99.81 Dependence on supplemental oxygen; Z86.73 Personal history of transient ischemic attack (TIA), and cerebral infarction without residual deficits; Z95.5 Presence of coronary angioplasty implant and graft; Z95.0 Presence of cardiac pacemaker
CPT/HCPCS: 36415; 36600; 71045; 78452; 80048; 80053; 80076; 80320; 81001; 82803; 83605; 83735; 83880; 84100; 84145; 84443; 84484; 85018; 85025; 85379; 85610; 85651; 85730; 86140; 87040; 87077; 87081; 87088; 87186; 87502; 87503; 87811; 93005; 93017; 93306; 94640; 94760; 97110; 97161; 97530; 99291; 99292; A5200; A6213; A6258; A6402; A6449; A9500; C1751; C1758; G0378; J0131; J0456; J0696; J1644; J1650; J2250; J2270; J2405; J2470; J2785; J7030; J7040; J7120